=== PATIENT | female | born 1940 | race Two or more races ===

== ENCOUNTER → 2017-06-28 | Emergency (ER) | payer OTHER ==
[~2017-06-28] VITALS: Ht 149.9 cm; Wt 53.5 kg
[~2017-06-28] MED LIST: ADVAIR 5001 DISK W/1; CLARITIN-D 12 HOUR TAB ER PO; DIOVAN320 MG; FLONASE16 G1 NS; GUAIFENESI100 MG/52 PO; HYZAAR 100/25 T1 TAB; LEVAQUIN750 MG PO; LIPITOR20 MG; NABUMETONE750 MG PO; NEURONTIN300 MG; NIFE60TA3; PREDNISOLONE5 MG; PREDNISONE10 MG PO; PREDNISONE20 MG PO; PREVACID15 MG; TUSSI-PRES B LIQ5 ML PO; Xopenex 1.25 MG/3 ML SOLUTION IH
== END | disposition home or self-care (01) ==
LOC: ER 11:25
DX: R10.13 Epigastric pain (principal)

== ENCOUNTER 2017-09-18 12:36 | Emergency (ER) | payer OTHER ==
[~2017-09-18] VITALS: Ht 152.4 cm; Wt 52.2 kg
[2017-09-18] MEDS ORDERED: METFORMIN HCL500 MG (13:14)
[2017-09-18] MEDS ORDERED: HYDRALAZINE HCL50 MG (13:15)
[2017-09-18] MEDS ORDERED: DOXYCYCLINE HY100 MG PO (22:13)
[2017-09-18] MEDS ORDERED: ULTRACET PO (22:25)
== END 2017-09-18 22:42 | disposition home or self-care (01) ==
LOC: ER 12:36
DX: N39.0 Urinary tract infection, site not specified (principal)

== ENCOUNTER 2017-10-27 11:29 | Outpatient (CLI) | payer OTHER ==
[~2017-10-27 11:29] MED LIST changes: +DOXYCYCLINE HY100 MG PO; +HYDRALAZINE HCL50 MG; +METFORMIN HCL500 MG; +ULTRACET PO
== END 2017-10-27 12:16 | disposition home or self-care (01) ==
LOC: NUCLEAR 11:29
DX: M48.44XA Fatigue fracture of vertebra, thoracic region, initial encounter for fracture (principal); M80.00XA Age-related osteoporosis with current pathological fracture, unspecified site, initial encounter for fracture

== ENCOUNTER 2018-08-24 08:23 | Emergency (ER) | payer OTHER ==
[~2018-08-24] VITALS: Ht 154.9 cm; Wt 51.3 kg
[2018-08-24] MEDS ORDERED: LIPITOR40 MG (08:38)
== END 2018-08-24 16:10 | disposition home or self-care (01) ==
LOC: ER 08:23
DX: K57.90 Diverticulosis of intestine, part unspecified, without perforation or abscess without bleeding (principal); R10.32 Left lower quadrant pain

== ENCOUNTER 2020-04-28 07:43 | Inpatient (IN) | payer OTHER ==
[~2020-04-28] VITALS: Ht 149.9 cm; Wt 63.5 kg
[~2020-04-28 07:43] MED LIST changes: +LIPITOR40 MG
== END 2020-04-30 14:47 | disposition home or self-care (01) | DRG 256 ==
LOC: ER 07:43 → MEDJ 16:23
PROVIDERS: Surgery; ADMIT Internal Medicine; ATTEND Internal Medicine
PROC: 0Y6P0Z3 Detachment at Right 1st Toe, Low, Open Approach (ICD-10-PCS; principal; 2020-04-29 07:00)
DX: E11.52 Type 2 diabetes mellitus with diabetic peripheral angiopathy with gangrene (principal); I96 Gangrene, not elsewhere classified; M86.171 Other acute osteomyelitis, right ankle and foot; Z20.828 Contact with and (suspected) exposure to other viral communicable diseases; I10 Essential (primary) hypertension; E11.65 Type 2 diabetes mellitus with hyperglycemia; Z79.899 Other long term (current) drug therapy; J44.9 Chronic obstructive pulmonary disease, unspecified; Z95.0 Presence of cardiac pacemaker; Z79.4 Long term (current) use of insulin

== ENCOUNTER 2020-05-07 09:38 | Emergency (ER) | payer OTHER ==
[~2020-05-07] VITALS: Ht 154.9 cm; Wt 63.5 kg
== END 2020-05-07 16:11 | disposition home or self-care (01) ==
LOC: ER 09:38
DX: K29.70 Gastritis, unspecified, without bleeding (principal); Z03.818 Encounter for observation for suspected exposure to other biological agents ruled out

== ENCOUNTER 2020-09-17 22:43 | Inpatient (IN) | payer OTHER ==
[~2020-09-17] VITALS: Ht 154.9 cm; Wt 52.2 kg
[2020-09-17] MEDS ORDERED: GLUMETZA500 MG (22:48)
--- NOTE | 2020-09-17 22:51 | NUR ---
SE RECIBE PTE ALERTA Y ORIENTADA X3,REFIERE TENER DOLOR ABDOMINAL ,NAUSEAS.
--- NOTE | 2020-09-17 23:35 | NUR ---
SE ORIENTA PTE SOBRE TX MEDICO EL CUAL REFIERE ENTENDER.SE LE EXTRAEN MUESTRAS BAJO MEDIDAS ASEPTICAS,SE CANALIZA Y SE LE ADMINISTRA MEDICAMENTO SUNDAY ORDEN MEDICA.SE REALIZA EKG Y SE MUESTRA A DRA RAPP.
--- NOTE | 2020-09-18 04:10 | NUR ---
LE REALIZARON CT ORDENADO POR PACIENTE TOLERO ESTUDIO.
--- NOTE | 2020-09-18 06:27 | NUR ---
SE ORIENTA PTE SOBRE INSERCION DE NGT EL CUAL REFIERE ENTENDER.SE INSERTA EL MISMO EN JOHN RT BAJO MEDIDAS ASEPTICAS,SE CONECTA @LIS,PTE CON EGRESO DE 200ML.SE FARHAN BAJO OBSERVACION POR CAMBIOS.
[2020-09-21] MEDS ORDERED: ROSUVASTATIN CA40 MG (13:21)
[2020-09-21] MEDS ORDERED: FUROSEMIDE40 MG (13:21)
[2020-09-21] MEDS ORDERED: XARELTO2.5 MG (13:21)
[2020-09-21] MEDS ORDERED: EZETIMIBE10 MG (13:21)
[2020-09-21] MEDS ORDERED: AMLODIPINE BESYL5 MG (13:21)
[2020-09-21] MEDS ORDERED: HYDROCHLOROTHIA25 MG (13:22)
[2020-09-21] MEDS ORDERED: LOSARTAN POTAS100 MG (13:22)
[2020-09-21] MEDS ORDERED: FAMOTIDINE20 MG (13:22)
[2020-09-21] MEDS ORDERED: ST. JOSEPH ASPI81 M2 (13:22)
[2020-09-21] MEDS ORDERED: CILOSTAZOL100 MG (13:22)
[2020-09-21] MEDS ORDERED: CLOPIDOGREL BIS75 MG (13:22)
[2020-09-21] MEDS ORDERED: PANTOPRAZOLE SO40 MG (13:22)
== END 2020-09-24 15:03 | disposition home or self-care (01) | DRG 354 ==
LOC: ER 22:43 → SEC-K 09-18 07:12 → SURH 09-18 07:12
PROVIDERS: ADMIT Surgery; ATTEND Surgery
PROC: B24BZZZ Ultrasonography of Heart with Aorta (ICD-10-PCS; 2020-09-18)
PROC: 30233N1 Transfusion of Nonautologous Red Blood Cells into Peripheral Vein, Percutaneous Approach (ICD-10-PCS; 2020-09-21)
PROC: 0WQF0ZZ Repair Abdominal Wall, Open Approach (ICD-10-PCS; principal; 2020-09-22 16:45)
DX: K43.0 Incisional hernia with obstruction, without gangrene (principal); D62 Acute posthemorrhagic anemia; E27.49 Other adrenocortical insufficiency; E11.22 Type 2 diabetes mellitus with diabetic chronic kidney disease; I12.9 Hypertensive chronic kidney disease with stage 1 through stage 4 chronic kidney disease, or unspecified chronic kidney disease; N18.32 Chronic kidney disease, stage 3b; Z95.0 Presence of cardiac pacemaker; J44.9 Chronic obstructive pulmonary disease, unspecified; Z79.52 Long term (current) use of systemic steroids; D64.9 Anemia, unspecified; K66.0 Peritoneal adhesions (postprocedural) (postinfection)

== ENCOUNTER 2021-01-01 08:00 | Outpatient (CLI) | payer OTHER ==
[~2021-01-01 08:00] MED LIST changes: +AMLODIPINE BESYL5 MG; +CILOSTAZOL100 MG; +CLOPIDOGREL BIS75 MG; +EZETIMIBE10 MG; +FAMOTIDINE20 MG; +FUROSEMIDE40 MG; +GLUMETZA500 MG; +HYDROCHLOROTHIA25 MG; +LOSARTAN POTAS100 MG; +PANTOPRAZOLE SO40 MG; +ROSUVASTATIN CA40 MG; +ST. JOSEPH ASPI81 M2; +XARELTO2.5 MG
== END 2021-01-01 08:30 | disposition home or self-care (01) ==
LOC: PPH VACUNA 08:00
PROVIDERS: ATTEND Emergency Medicine Pediatric Emergency Medicine
DX: Z23 Encounter for immunization (principal)

== ENCOUNTER 2021-05-23 14:33 | Emergency (ER) | payer OTHER ==
[~2021-05-23] VITALS: Ht 152.4 cm; Wt 54.4 kg
[2021-05-23] MEDS ORDERED: ABANEU-SL TABL1 EACH SL (15:10)
[2021-05-23] MEDS ORDERED: HYDRALAZINE HC100 MG PO (15:11)
[2021-05-23] MEDS ORDERED: GLIPIZIDE ER2.5 MG PO (15:11)
[2021-05-23] MEDS ORDERED: TRAMADOL HCL50 MG PO (15:11)
[2021-05-23] MEDS ORDERED: GABAPENTIN400 MG PO (15:11)
== END 2021-05-23 18:15 | disposition home or self-care (01) ==
LOC: ER 14:33
DX: I16.0 Hypertensive urgency (principal); I10 Essential (primary) hypertension; R42 Dizziness and giddiness

== ENCOUNTER 2021-11-11 15:35 | Inpatient (IN) | payer OTHER ==
[~2021-11-11] VITALS: Ht 157.5 cm; Wt 68.0 kg
[~2021-11-11 15:35] MED LIST changes: +ABANEU-SL TABL1 EACH SL; +GABAPENTIN400 MG PO; +GLIPIZIDE ER2.5 MG PO; +HYDRALAZINE HC100 MG PO; +TRAMADOL HCL50 MG PO
--- NOTE | 2021-11-11 16:19 | NUR ---
SE RECIBE PTE ALERTA Y ORIENTADA X3. PTE REFIERE ESTAR EVACUANDO CON DANNI OSCURA Y LORETTA SALIDO CON NIVELES DE HEMOGLOBINA BAJOS. PTE ES REFERIDA A BOOGIE DE EMERGENCIAS POR DR. LIYA MELÉNDEZ. SE PEG S/ Y SE UBICA PTE EN AREA DE OBSERVACION.
--- NOTE | 2021-11-11 17:01 | NUR ---
SE ORIENTA PTE SOBRE TX MEDICO EL CUAL REFIERE ENTENDER.SE LE EXTRAEN MUESTRAS BAJO MEDIDAS ASEPTICAS,SE CANALIZA Y SE COLOCAN FLUIDOS DE MANTENIMIENTO,SE NOTIFICA PLACA PENDIENTE.
--- NOTE | 2021-11-11 17:06 | NUR ---
SE NOTIFICAN TERAPIAS RESP A MS FERRER.
--- NOTE | 2021-11-11 18:49 | NUR ---
SE PEG TUBOS PILOTOS PARA 2 UNIDADES DE PRBC FRACC NOTIFICADAS A MS DU DE [facility] A[facility]ILIO MUTUO Y CORROBORA PTE CON RECORD PREVIO.
[2021-11-17] MEDS ORDERED: INTEGRA PLUS C1 EACH PO (19:57)
[2021-11-17] MEDS ORDERED: TAMIFLU 30 MG PO (19:57)
[2021-11-17] MEDS ORDERED: CARAFATE1 GM PO (19:57)
[2021-11-17] MEDS ORDERED: PYRIDOXINE HCL100 MG PO (19:57)
[2021-11-17] MEDS ORDERED: Neurin-Sl Tablet Sl SL (19:57)
[2021-11-17] MEDS ORDERED: RAYOS1 MG PO (20:04)
[2021-11-17] MEDS ORDERED: PREDNISONE PO ×2 (20:04)
== END 2021-11-17 22:25 | disposition home or self-care (01) | DRG 377 ==
LOC: ER 15:35 → MEDJ 22:50
PROVIDERS: ADMIT Internal Medicine; ATTEND Internal Medicine
PROC: B54NZZZ Ultrasonography of Left Upper Extremity Veins (ICD-10-PCS; 2021-11-11)
PROC: BW24ZZZ Computerized Tomography (CT Scan) of Chest and Abdomen (ICD-10-PCS; 2021-11-11)
PROC: BW21ZZZ Computerized Tomography (CT Scan) of Abdomen and Pelvis (ICD-10-PCS; 2021-11-11)
PROC: 30233N1 Transfusion of Nonautologous Red Blood Cells into Peripheral Vein, Percutaneous Approach (ICD-10-PCS; principal; 2021-11-12)
PROC: 02HV33Z Insertion of Infusion Device into Superior Vena Cava, Percutaneous Approach (ICD-10-PCS; 2021-11-12)
PROC: 8E0ZXY6 Isolation (ICD-10-PCS; 2021-11-12)
PROC: B54MZZZ Ultrasonography of Right Upper Extremity Veins (ICD-10-PCS; 2021-11-16)
DX: K92.1 Melena (principal); U07.1 COVID-19; J44.1 Chronic obstructive pulmonary disease with (acute) exacerbation; J45.901 Unspecified asthma with (acute) exacerbation; R09.02 Hypoxemia; E87.6 Hypokalemia; J10.1 Influenza due to other identified influenza virus with other respiratory manifestations; D63.8 Anemia in other chronic diseases classified elsewhere; Z79.4 Long term (current) use of insulin; I12.9 Hypertensive chronic kidney disease with stage 1 through stage 4 chronic kidney disease, or unspecified chronic kidney disease; E11.22 Type 2 diabetes mellitus with diabetic chronic kidney disease; N18.30 Chronic kidney disease, stage 3 unspecified; Z95.0 Presence of cardiac pacemaker; Z86.718 Personal history of other venous thrombosis and embolism

== ENCOUNTER 2021-11-19 09:55 | Emergency (ER) | payer OTHER ==
[~2021-11-19] VITALS: Ht 157.5 cm; Wt 54.0 kg
[~2021-11-19 09:55] MED LIST changes: +CARAFATE1 GM PO; +INTEGRA PLUS C1 EACH PO; +Neurin-Sl Tablet Sl SL; +PREDNISONE PO; +PYRIDOXINE HCL100 MG PO; +RAYOS1 MG PO; +TAMIFLU 30 MG PO
[2021-11-19] MEDS ORDERED: CEFADROXIL500 MG PO (10:16)
[2021-11-19] MEDS ORDERED: COZAAR25 MG PO (10:16)
[2021-11-19] MEDS ORDERED: DOXYCYCLINE HY100 M2 PO (15:51)
[2021-11-19] MEDS ORDERED: INTESTINEX680 M2 PO (15:51)
== END 2021-11-19 17:08 | disposition home or self-care (01) ==
LOC: ER 09:55
DX: L03.113 Cellulitis of right upper limb (principal); Z20.822 Contact with and (suspected) exposure to COVID-19; Z88.6 Allergy status to analgesic agent

== ENCOUNTER 2021-11-22 17:25 | Inpatient (IN) | payer OTHER ==
[~2021-11-22] VITALS: Ht 154.9 cm; Wt 54.0 kg
[~2021-11-22 17:25] MED LIST changes: +CEFADROXIL500 MG PO; +COZAAR25 MG PO; +DOXYCYCLINE HY100 M2 PO; +INTESTINEX680 M2 PO
--- NOTE | 2021-11-22 17:41 | NUR ---
SE RECIBE A PACIENTE ALERTA Y ORIENTADA X3 ACOMPANADA DE PROCTOR HIJA. REFIERE TENER DOLOR EN BRAZO DERECHO. REFIERE SER PACIENTE DE DOCTOR
--- NOTE | 2021-11-22 18:58 | NUR ---
PTE EVALUADA POR EL DR WOODY QUIEN ORDENA EL TX. SE ORIENTA SOBRE EL TX ORDENADO, LO REFIERE ENTENDER, PTE Y FAMILIAR. SE REALIZAN PRUEBAS DE LABORATORIO SUNDAY ORDEN MEDICA Y SIGUIENDO MEDIDAS ASEPTICAS Y ESTERILES. SE OFRECE CUIDADO LOCAL CON HIBICLEANS SUNDAY ORDEN MEDICA DEL DR ANDERSON EN BRAZO RT EL MISMO PRESENTA PUSTULAS Y ULCERA EN AREA DEL ANTEBRAZO. SE COLOCA BENDAJE LIMPIO Y SECO. PTE CANALIZADA EN BRAZO LT, EN AREA SOLICITADA POR FAMILIAR, PATENTE Y MICHAEL DE EDEMA O ERITEMA.
[2021-11-23] MEDS ORDERED: LOSARTAN POTAS100 MG (11:05)
[2021-11-23] MEDS ORDERED: XARELTO2.5 MG (11:05)
[2021-11-23] MEDS ORDERED: CLONIDINE HCL0.1 MG (11:05)
[2021-11-23] MEDS ORDERED: ROSUVASTATIN CA40 MG (11:05)
[2021-11-23] MEDS ORDERED: OSELTAMIVIR PHO30 MG PO (11:08)
[2021-12-08] MEDS ORDERED: RAYOS5 MG PO (10:41)
[2021-12-08] MEDS ORDERED: INTESTINEX680 M1 PO (10:41)
[2021-12-08] MEDS ORDERED: PROTEINEX-18 LI30 ML PO (10:41)
[2021-12-08] MEDS ORDERED: PYRIDOXINE HCL100 MG PO (10:41)
[2021-12-08] MEDS ORDERED: POM (MEDICAMENTO EN IH (10:41)
[2021-12-08] MEDS ORDERED: Neurin-Sl Tablet Sl SL (10:41)
[2021-12-08] MEDS ORDERED: Septra Ds Tablet PO (10:41)
== END 2021-12-09 11:11 | disposition home or self-care (01) | DRG 603 ==
LOC: ER 17:25 → SURG 18:50 → SEC-K 18:50 → SURH 18:50 → SURG 11-23 07:46 → MEDJ 11-23 19:48 → SURG 11-24 10:49 → SURH 11-24 14:15
PROVIDERS: ADMIT Internal Medicine; ATTEND Internal Medicine
PROC: 0HBDXZX Excision of Right Lower Arm Skin, External Approach, Diagnostic (ICD-10-PCS; principal; 2021-11-22)
PROC: 8E0ZXY6 Isolation (ICD-10-PCS; 2021-11-22)
PROC: 30233N1 Transfusion of Nonautologous Red Blood Cells into Peripheral Vein, Percutaneous Approach (ICD-10-PCS; 2021-12-05)
DX: L03.113 Cellulitis of right upper limb (principal); A00-B99 Certain infectious and parasitic diseases; J44.1 Chronic obstructive pulmonary disease with (acute) exacerbation; J45.21 Mild intermittent asthma with (acute) exacerbation; B37.49 Other urogenital candidiasis; L02.413 Cutaneous abscess of right upper limb; I87.9 Disorder of vein, unspecified; I13.10 Hypertensive heart and chronic kidney disease without heart failure, with stage 1 through stage 4 chronic kidney disease, or unspecified chronic kidney disease; N18.30 Chronic kidney disease, stage 3 unspecified; I25.10 Atherosclerotic heart disease of native coronary artery without angina pectoris; E11.9 Type 2 diabetes mellitus without complications; D63.8 Anemia in other chronic diseases classified elsewhere; Z79.52 Long term (current) use of systemic steroids; Z79.01 Long term (current) use of anticoagulants; Z95.5 Presence of coronary angioplasty implant and graft; Z95.0 Presence of cardiac pacemaker; Z79.84 Long term (current) use of oral hypoglycemic drugs

== ENCOUNTER 2022-03-19 14:17 | Inpatient (IN) | payer OTHER ==
[~2022-03-19] VITALS: Ht 154.9 cm; Wt 54.4 kg
[~2022-03-19 14:17] MED LIST changes: +CLONIDINE HCL0.1 MG; +INTESTINEX680 M1 PO; +OSELTAMIVIR PHO30 MG PO; +POM (MEDICAMENTO EN IH; +PROTEINEX-18 LI30 ML PO; +RAYOS5 MG PO; +Septra Ds Tablet PO
== END 2022-03-23 23:29 | disposition home or self-care (01) | DRG 392 ==
LOC: ER 14:17 → MEDJ 22:52
PROVIDERS: ADMIT Internal Medicine; ATTEND Internal Medicine
PROC: BW21ZZZ Computerized Tomography (CT Scan) of Abdomen and Pelvis (ICD-10-PCS; principal; 2022-03-19)
DX: K57.32 Diverticulitis of large intestine without perforation or abscess without bleeding (principal); I13.0 Hypertensive heart and chronic kidney disease with heart failure and stage 1 through stage 4 chronic kidney disease, or unspecified chronic kidney disease; N18.9 Chronic kidney disease, unspecified; E11.22 Type 2 diabetes mellitus with diabetic chronic kidney disease; I25.10 Atherosclerotic heart disease of native coronary artery without angina pectoris; I50.9 Heart failure, unspecified; D64.9 Anemia, unspecified

== ENCOUNTER 2022-03-30 15:16 | Inpatient (IN) | payer OTHER ==
[~2022-03-30] VITALS: Ht 154.9 cm; Wt 49.9 kg
[2022-04-05] MEDS ORDERED: ABANEU-SL TABL1 EACH (11:46)
[2022-04-05] MEDS ORDERED: SYMBICORT 16010.2 GM (11:48)
== END 2022-04-07 20:39 | disposition home or self-care (01) | DRG 392 ==
LOC: ER 15:16 → MEDI 22:42
PROVIDERS: ADMIT Internal Medicine; ATTEND Internal Medicine
PROC: BW21ZZZ Computerized Tomography (CT Scan) of Abdomen and Pelvis (ICD-10-PCS; 2022-03-30)
PROC: BW28ZZZ Computerized Tomography (CT Scan) of Head (ICD-10-PCS; 2022-03-31)
PROC: 8E0ZXY6 Isolation (ICD-10-PCS; 2022-04-01)
PROC: 02HV33Z Insertion of Infusion Device into Superior Vena Cava, Percutaneous Approach (ICD-10-PCS; principal; 2022-04-02)
DX: K57.32 Diverticulitis of large intestine without perforation or abscess without bleeding (principal); A04.72 Enterocolitis due to Clostridium difficile, not specified as recurrent; N17.9 Acute kidney failure, unspecified; D64.9 Anemia, unspecified; I13.10 Hypertensive heart and chronic kidney disease without heart failure, with stage 1 through stage 4 chronic kidney disease, or unspecified chronic kidney disease; N18.9 Chronic kidney disease, unspecified; D63.1 Anemia in chronic kidney disease; E03.8 Other specified hypothyroidism

== ENCOUNTER 2022-04-22 11:41 | Inpatient (IN) | payer OTHER ==
[~2022-04-22] VITALS: Ht 157.5 cm; Wt 52.2 kg
[~2022-04-22 11:41] MED LIST changes: +ABANEU-SL TABL1 EACH; +SYMBICORT 16010.2 GM
--- NOTE | 2022-04-22 11:57 | NUR ---
PTE ALERTA,ESTABLE Y ORIENTADA.ESTA REFIERE QUE DESDE HACE 3 HANNA COMENZO CON EL DOLOR DE ABD
--- NOTE | 2022-04-22 12:55 | NUR ---
SE LE ORIENTA A PACIENTE SOBRE LAS ORDENES MEDICAS, REFIERE ENTEDER LAS MISMAS. SE CANALIZA Y SE LE COLOCA LOS IVF'S, SE LE PEG LAS MUETRAS Y SE LE REALIZA PLACA SUNDAY LAS ORDENES MEDICAS.
--- NOTE | 2022-04-22 15:17 | NUR ---
PTE ALERTA Y ORIENTA X 3 ESFERAS,EN AAMIR CON BARANDAS ELEVADAS,EN COMPANIA DE FAMILIARM,AREA DE VENOPUNCION PATENTE Y MICHAEL DE EDEMA CON FLUIDOS DE MANTENIMIENTO,INGIRIENDO ALIMENTOS LOS CUALES TOLERA,SE ORIENTA SOBRE CT PENDIENTE.
--- NOTE | 2022-04-22 23:55 | NUR ---
SE RECIBE PTE ALERTA Y ORIENTADA X3 EN AAMIR CON BARANDAS ELEVADAS. PTE CANALIZADA AREA MICHAEL DE EDEMA Y DE ENROJECIMIENTO. PTE EN ESPERA DE RE EVALUACION MEDICA.
--- NOTE | 2022-04-23 03:02 | NUR ---
PACIENTE Y FAMILIAR REHUSAN FIRMAR PAPELES DE ADMISION HASTA QUE EL DR. PERALTAARY VENGA A CHERRY A LA PACIENTE. LA MISMA REFIERE QUE NO ESTAN REHUSANDO EL TRATAMIENTO. SE NOTIFICA A REGLA DE SUPERVISION GENERAL Y LA MISMA INDICA QUE LA ADMISION SE QUEDA INCOMPLETA Y LA PACIENTE SE QUEDA EN BOOGIE DE EMERGENCIA.
--- NOTE | 2022-04-23 08:33 | NUR ---
SE RECIBE PTE FEMENINA DE 81 YRS ALERTA CONCINTE . SE LE MABLE S/V LA CUAL SE DOCUMENTA. SE LE ADMINSTRA MEDICMANTOS DE VASOTEC1.25 MG IV POR PRECIONES LINDSAY. SE LE LLAMA A LA Y SE LE VLADIMIR MENSAJE PARA QUE VENGA A EVALUADA LA PTE YA QUE NO SE QUIERE ADMITIR A EL HOSPITAL SE MANTIENE BAJO OBSERVACION.
== END 2022-04-26 17:25 | disposition home or self-care (01) | DRG 392 ==
LOC: ER 11:41 → MEDI 04-23 10:50
PROVIDERS: ADMIT Internal Medicine; ATTEND Internal Medicine
PROC: BW2110Z Computerized Tomography (CT Scan) of Abdomen and Pelvis using Low Osmolar Contrast, Unenhanced and Enhanced (ICD-10-PCS; principal; 2022-04-22)
DX: K57.32 Diverticulitis of large intestine without perforation or abscess without bleeding (principal); A04.72 Enterocolitis due to Clostridium difficile, not specified as recurrent; E03.9 Hypothyroidism, unspecified; E11.22 Type 2 diabetes mellitus with diabetic chronic kidney disease; I12.9 Hypertensive chronic kidney disease with stage 1 through stage 4 chronic kidney disease, or unspecified chronic kidney disease; N18.30 Chronic kidney disease, stage 3 unspecified; D64.9 Anemia, unspecified; M06.9 Rheumatoid arthritis, unspecified; Z79.84 Long term (current) use of oral hypoglycemic drugs

== ENCOUNTER 2022-05-08 20:32 | Inpatient (IN) | payer OTHER ==
[~2022-05-08] VITALS: Ht 157.5 cm; Wt 52.2 kg
--- NOTE | 2022-05-08 21:29 | NUR ---
PTE SE OBSERVA LETARGICO. FAMILIAR DE PTE VERBALIZA QUE PTE PADECE DE DIVERTICULITIS. PTE VERBALIZA TENER DOLOR ABDOMINAL EN LA PARTE INFERIOR. PTE SE LE REALIZA EKG Y ES EVALUADO POR DR CARRENO.
--- NOTE | 2022-05-08 22:09 | NUR ---
IV LINE IS STARTED ON PATIENT'S WRIST AND LAB SAMPLES ARE COLLECTED. SALINE LOCK IS PLACED IN IV LINE AND IV FLUIDS ARE GIVEN.
--- NOTE | 2022-05-09 07:45 | NUR ---
SE RECIBE PTE EN EL AREA DE OBSERVACION PTE ALERTA Y ORIENTADO POR 3 PTE EN CAMA CON BARANDAS ELEVADA Y TIMBRE ACCESIBLE PTE NO PRESENTA DOLOR AL MOMENTO. SE OBSERVA VENOPUNCION PATENTE Y MICHAEL DE EDEMA, PTE SE MANTIENE EN OBSERVACION Y BAJO TRATAMIENTO POR CAMBIOS.
== END 2022-05-14 16:03 | disposition home or self-care (01) | DRG 392 ==
LOC: ER 20:32 → SEC-K 05-09 14:50 → SURG 05-09 19:02 → SURH 05-10 02:48
PROVIDERS: ADMIT Internal Medicine; ATTEND Internal Medicine
PROC: BW2110Z Computerized Tomography (CT Scan) of Abdomen and Pelvis using Low Osmolar Contrast, Unenhanced and Enhanced (ICD-10-PCS; principal; 2022-05-08)
DX: K57.32 Diverticulitis of large intestine without perforation or abscess without bleeding (principal); A04.72 Enterocolitis due to Clostridium difficile, not specified as recurrent; I11.9 Hypertensive heart disease without heart failure; E03.9 Hypothyroidism, unspecified; Z91.119 Patient's noncompliance with dietary regimen due to unspecified reason; Z91.199 Patient's noncompliance with other medical treatment and regimen due to unspecified reason

== ENCOUNTER 2022-10-23 20:52 | Emergency (ER) | payer OTHER ==
[~2022-10-23] VITALS: Ht 154.9 cm; Wt 52.2 kg
== END 2022-10-23 23:52 | disposition home or self-care (01) ==
LOC: ER 20:52
DX: I10 Essential (primary) hypertension (principal); Z88.6 Allergy status to analgesic agent; E11.9 Type 2 diabetes mellitus without complications; Z79.84 Long term (current) use of oral hypoglycemic drugs

== ENCOUNTER 2023-05-15 16:47 | Emergency (ER) | payer OTHER ==
[~2023-05-15] VITALS: Ht 154.9 cm; Wt 49.9 kg
[2023-05-15 18:13] LABS: HEMATOCRIT 30.8 % (36.0-45.00); HEMOGLOBIN 9.8 g/dL (12.0-15.00); MEAN CELL VOLUME 80.6 fL (80.00-100.00); MEAN CORPUSCULAR HEMOGLOBIN 25.6 pg (27.00-32.0); MEAN CORPUSCULAR HGB CONC 31.8 g/dl (32.0-36.0); PLATELET COUNT 221 K/uL (150-450); RED BLOOD COUNT 3.82 M/uL (4.00-6.00); RED CELL DISTRIBUTION WIDTH 17.9 % (11.5-14.5)
[2023-05-15 18:38] LABS: ALBUMIN 2.5 gm/dL (3.4-5.0); BILIRUBIN TOTAL 0.36 mg/dL (0.3-1.2); CALCIUM 8.4 mg/dL (8.5-10.1); CREATININE SERUM 1.15 mg/dL (0.55-1.02); GFR 45.29; GLOBULINA 3.8 G/DL (2.4-3.5); POTASSIUM 4.03 mEq/L (3.5-5.1); TOTAL PROTEIN 6.3 gm/dL (6.4-8.2)
[2023-05-15 19:06] LABS: URINE APPEARANCE Clear; URINE BILIRRUBIN Negative (NEGATIVE); URINE BLOOD Negative; URINE COLOR Yellow; URINE GLUCOSE Negative (NEGATIVE); URINE LEUKOCYTE Small; URINE NITRATE Negative; URINE PROTEIN Trace (NEGATIVE); URINE UROBILINOGEN 0.2 E.U./dl
[2023-05-15 19:10] LABS: URINE BACTERIA 197.7 uL (0.0-1933); URINE EPITHELIAL CELLS 62.7 uL (0.0-38.8); URINE WBC 85.7 uL (0.0-23.2)
== END 2023-05-16 01:31 | disposition home or self-care (01) ==
LOC: ER 16:49
PROVIDERS: General Practice
DX: K57.32 Diverticulitis of large intestine without perforation or abscess without bleeding (principal); K57.30 Diverticulosis of large intestine without perforation or abscess without bleeding; E11.9 Type 2 diabetes mellitus without complications; Z79.84 Long term (current) use of oral hypoglycemic drugs; I10 Essential (primary) hypertension

== ENCOUNTER 2023-05-17 03:18 | Inpatient (IN) | payer OTHER ==
[~2023-05-17] VITALS: Ht 154.9 cm; Wt 49.9 kg
[2023-05-17 04:42] LABS: HEMATOCRIT 31.8 % (36.0-45.00); HEMOGLOBIN 10.4 g/dL (12.0-15.00); MEAN CELL VOLUME 78.4 fL (80.00-100.00); MEAN CORPUSCULAR HEMOGLOBIN 25.6 pg (27.00-32.0); MEAN CORPUSCULAR HGB CONC 32.6 g/dl (32.0-36.0); PLATELET COUNT 213 K/uL (150-450); RED BLOOD COUNT 4.06 M/uL (4.00-6.00); RED CELL DISTRIBUTION WIDTH 18.1 % (11.5-14.5)
[2023-05-17 04:54] LABS: INR 1.09; PARTIAL THROMBOPLASTIN TIME 29.9 SECONDS (22.0-34.0); PROTHROMBIN TIME 11.4 SECONDS (9.0-11.5)
[2023-05-17 05:09] LABS: ALBUMIN 2.5 gm/dL (3.4-5.0); BILIRUBIN TOTAL 0.44 mg/dL (0.3-1.2); BILIRUBIN,CONJUGATED 0.12 mg/dL (0.0-0.2); BILIRUBIN,UNCONJUGATED 0.32 mg/dL (0.0-0.6); CALCIUM 8.5 mg/dL (8.5-10.1); CREATININE SERUM 1.2 mg/dL (0.55-1.02); GFR 43.12; GLOBULINA 3.8 G/DL (2.4-3.5); POTASSIUM 4.27 mEq/L (3.5-5.1); TOTAL PROTEIN 6.3 gm/dL (6.4-8.2)
[2023-05-17 12:34] LABS: URINE APPEARANCE Turbid; URINE BILIRRUBIN Negative (NEGATIVE); URINE BLOOD Negative; URINE COLOR Yellow; URINE GLUCOSE Negative (NEGATIVE); URINE LEUKOCYTE Large; URINE NITRATE Negative; URINE PROTEIN Trace (NEGATIVE)
[2023-05-17 12:42] LABS: URINE BACTERIA 4214.4 uL (0.0-1933); URINE RBC 35.2 uL (0.0-20.8); URINE WBC 501.6 uL (0.0-23.2)
[2023-05-17 13:22] LABS: URINE EPITHELIAL CELLS > 201.7 uL (0.0-38.8)
== END 2023-05-20 10:36 | disposition home or self-care (01) | DRG 392 ==
LOC: ER 03:18 → MEDI 20:35
PROVIDERS: General Practice; ADMIT Internal Medicine; ATTEND Internal Medicine
DX: K52.89 Other specified noninfective gastroenteritis and colitis (principal); N39.0 Urinary tract infection, site not specified; I10 Essential (primary) hypertension; Z20.822 Contact with and (suspected) exposure to COVID-19; E03.9 Hypothyroidism, unspecified

== ENCOUNTER 2023-05-28 12:53 | Inpatient (IN) | payer OTHER ==
[~2023-05-28] VITALS: Ht 160 cm; Wt 6.8 kg
[2023-05-28] MEDS ORDERED: SYNTHROID50 MCG PO (13:11)
[2023-05-28] MEDS ORDERED: 0.9 % SODIUM CHLORIDE 1,000 ML IV STA (14:15)
[2023-05-28 15:17] LABS: PH,URINE 5.5 (5.0-8.0); URINE APPEARANCE Cloudy; URINE BILIRRUBIN Negative (NEGATIVE); URINE BLOOD Negative; URINE COLOR Yellow; URINE GLUCOSE Negative (NEGATIVE); URINE LEUKOCYTE Trace; URINE NITRATE Negative; URINE PROTEIN Negative (NEGATIVE); URINE UROBILINOGEN 0.2 E.U./dl
[2023-05-28 15:18] LABS: ALBUMIN 2.8 gm/dL (3.4-5.0); BILIRUBIN TOTAL 0.4 mg/dL (0.3-1.2); BILIRUBIN,CONJUGATED 0.1 mg/dL (0.0-0.2); BILIRUBIN,UNCONJUGATED 0.3 mg/dL (0.0-0.6); CALCIUM 8.9 mg/dL (8.5-10.1); CREATININE SERUM 1.71 mg/dL (0.55-1.02); GFR 28.65; HEMATOCRIT 33.4 % (36.0-45.00); HEMOGLOBIN 10.5 g/dL (12.0-15.00); MEAN CELL VOLUME 79.3 fL (80.00-100.00); MEAN CORPUSCULAR HEMOGLOBIN 24.9 pg (27.00-32.0); MEAN CORPUSCULAR HGB CONC 31.4 g/dl (32.0-36.0); PLATELET COUNT 288 K/uL (150-450); POTASSIUM 3.23 mEq/L (3.5-5.1); RED BLOOD COUNT 4.21 M/uL (4.00-6.00); RED CELL DISTRIBUTION WIDTH 19.4 % (11.5-14.5); TOTAL PROTEIN 6.4 gm/dL (6.4-8.2)
[2023-05-28 15:18] LABS: URINE BACTERIA 147.4 uL (0.0-1933); URINE RBC 8.9 uL (0.0-20.8); URINE WBC 38.3 uL (0.0-23.2)
[2023-05-28 15:34] LABS: URINE EPITHELIAL CELLS > 201.7 uL (0.0-38.8)
[2023-05-28] MEDS ORDERED: PIPERACILLIN/TAZOBACTAM SODIUM 2.25 GM VIAL IV ONE (16:15)
[2023-05-28] MEDS ORDERED: METRONIDAZOLE/SODIUM CHLORIDE 5 MG/ML ML IV SCH (21:11)
[2023-05-28] MEDS ORDERED: PIPERACILLIN/TAZOBACTAM SODIUM 2.25 GM VIAL IV SCH (21:11)
[2023-05-28] MEDS ORDERED: FAMOTIDINE/PF 20 MG/2 ML VIAL IV SCH (21:11)
[2023-05-28] MEDS ORDERED: RIVAROXABAN 10 MG TAB PO SCH (21:14)
[2023-05-28] MEDS ORDERED: MEPERIDINE HCL/PF 25 MG/ML VIAL IM PRN (21:15)
[2023-05-28] MEDS ORDERED: ONDANSETRON HCL 4 MG in 0.9 % SODIUM CHLORIDE 50 ML IV PRN (21:15)
[2023-05-28] MEDS ORDERED: hydrALAZINE HCL 20 MG VIAL IV PRN (21:15)
[2023-05-28 22:47] LABS: AMYLASE 62 U/L (25-115); LIPASE 24 U/L (13-75)
[2023-05-29] MEDS ORDERED: POTASSIUM CHLORIDE IN WATER 100 ML IV ONE (10:45)
[2023-05-29] MEDS ORDERED: METRONIDAZOLE/SODIUM CHLORIDE 500 MG/100 ML PIGGYBACK IV SCH (13:51)
[2023-05-29] MEDS ORDERED: PATIENTS OWN MEDICATION (MEDICAMENTO EN PISO) PO SCH (17:00)
[2023-05-30 05:09] LABS: HEMATOCRIT 28.4 % (36.0-45.00); MEAN CELL VOLUME 79.8 fL (80.00-100.00); MEAN CORPUSCULAR HGB CONC 31.6 g/dl (32.0-36.0); PLATELET COUNT 252 K/uL (150-450); RED BLOOD COUNT 3.55 M/uL (4.00-6.00); RED CELL DISTRIBUTION WIDTH 19.1 % (11.5-14.5)
[2023-05-30 05:15] LABS: MEAN CORPUSCULAR HEMOGLOBIN 25.3 pg (27.00-32.0)
[2023-05-30 05:27] LABS: CALCIUM 8.2 mg/dL (8.5-10.1); CREATININE SERUM 1.19 mg/dL (0.55-1.02); GFR 43.53; POTASSIUM 4.35 mEq/L (3.5-5.1)
[2023-05-30] MEDS ORDERED: PATIENTS OWN MEDICATION (MEDICAMENTO EN PISO) PO SCH ×2 (09:00)
[2023-05-30] MEDS ORDERED: Cyanocobalamin/Mecobalamin 1 TAB.SL SL SCH (10:03)
[2023-05-30] MEDS ORDERED: SOD FERRIC GLUC COMPLX/SUCROSE 62.5 MG/5 ML AMPUL IV SCH (10:03)
[2023-05-30] MEDS ORDERED: FLUCONAZOLE IN NACL,ISO-OSM 50 ML IV SCH (12:20)
[2023-05-30 13:22] LABS: FERRITIN 161.6 NG/ML (8-252)
[2023-05-30] MEDS ORDERED: FLUCONAZOLE IN NACL,ISO-OSM 2 MG/ML ML IV SCH (17:00)
[2023-05-30] MEDS ORDERED: EPOETIN ALFA-EPBX 10,000 UNIT/ML 2ML VIAL SUBCUTANEO SCH (17:00)
[2023-05-31] MEDS ORDERED: LEVOTHYROXINE SODIUM 50 MCG TABLET PO SCH (06:00)
[2023-05-31] MEDS ORDERED: CARVEDILOL 6.25 MG TABLET PO SCH (10:05)
[2023-05-31] MEDS ORDERED: LOSARTAN POTASSIUM 100 MG TABLET PO SCH (10:05)
[2023-05-31] MEDS ORDERED: ENOXAPARIN SODIUM 60 MG/0.6 ML SYRINGE SUBCUTANEO SCH (12:00)
[2023-05-31 16:30] LABS: CALCIUM 8.4 mg/dL (8.5-10.1); CHOL HDL RATIO 3.5 (0-5.0); CREATININE SERUM 1.03 mg/dL (0.55-1.02); GFR 51.43; POTASSIUM 3.99 mEq/L (3.5-5.1)
[2023-05-31] MEDS ORDERED: AA 4.25%/CAL/LYTES/DEXT 5% 1,000 ML PERIFERAL SCH (17:00)
[2023-05-31] MEDS ORDERED: NIFEDIPINE 60 MG TAB.SA.OSM PO SCH (21:00)
[2023-06-01] MEDS ORDERED: BUDESONIDE 0.5 MG/2 ML AMPUL.NEB IH SCH (11:41)
[2023-06-01] MEDS ORDERED: IPRATROPIUM BROMIDE 0.5 MG/2.5 ML AMPUL.NEB IH SCH (13:00)
[2023-06-02 06:53] LABS: HEMATOCRIT 27.5 % (36.0-45.00); MEAN CELL VOLUME 78.8 fL (80.00-100.00); MEAN CORPUSCULAR HEMOGLOBIN 25.9 pg (27.00-32.0); MEAN CORPUSCULAR HGB CONC 32.9 g/dl (32.0-36.0); PLATELET COUNT 242 K/uL (150-450); RED BLOOD COUNT 3.49 M/uL (4.00-6.00); RED CELL DISTRIBUTION WIDTH 18.2 % (11.5-14.5)
[2023-06-02 06:57] LABS: CALCIUM 8.3 mg/dL (8.5-10.1); CREATININE SERUM 0.9 mg/dL (0.55-1.02); GFR 60.09; POTASSIUM 3.75 mEq/L (3.5-5.1)
[2023-06-02] MEDS ORDERED: IOHEXOL 350 mgI/ML 50ML BOTT PO ONE (09:15)
[2023-06-04] MEDS ORDERED: DEXTROSE 5 % IN WATER 1,000 ML IV SCH (10:30)
[2023-06-05] MEDS ORDERED: IPRATROPIUM BROMIDE 0.5 MG/2.5 ML AMPUL.NEB IH SCH (10:49)
[2023-06-06 07:06] LABS: UREA CLEARANCE 9.5 ML/MIN
[2023-06-06 11:51] LABS: HEMATOCRIT 37.2 % (36.0-45.00); HEMOGLOBIN 12.1 g/dL (12.0-15.00); MEAN CELL VOLUME 82.2 fL (80.00-100.00); MEAN CORPUSCULAR HEMOGLOBIN 26.7 pg (27.00-32.0); MEAN CORPUSCULAR HGB CONC 32.5 g/dl (32.0-36.0); PLATELET COUNT 303 K/uL (150-450); RED BLOOD COUNT 4.53 M/uL (4.00-6.00); RED CELL DISTRIBUTION WIDTH 20.6 % (11.5-14.5)
[2023-06-06 12:43] LABS: ALBUMIN 2.8 gm/dL (3.4-5.0); BILIRUBIN TOTAL 0.26 mg/dL (0.3-1.2); CALCIUM 8.7 mg/dL (8.5-10.1); CREATININE SERUM 1.13 mg/dL (0.55-1.02); GFR 46.21; GLOBULINA 3.2 G/DL (2.4-3.5); POTASSIUM 3.61 mEq/L (3.5-5.1)
== END 2023-06-06 14:09 | DRG 392 ==
LOC: ER 12:53 → MEDI 21:11
PROVIDERS: General Practice; Internal Medicine Hematology & Oncology; ADMIT Internal Medicine; ATTEND Internal Medicine
PROC: BW21ZZZ Computerized Tomography (CT Scan) of Abdomen and Pelvis (ICD-10-PCS; principal; 2023-05-28)
PROC: 02HV33Z Insertion of Infusion Device into Superior Vena Cava, Percutaneous Approach (ICD-10-PCS; 2023-06-01)
PROC: 3E0F7GC Introduction of Other Therapeutic Substance into Respiratory Tract, Via Natural or Artificial Opening (ICD-10-PCS; 2023-06-01)
PROC: BW21ZZZ Computerized Tomography (CT Scan) of Abdomen and Pelvis (ICD-10-PCS; 2023-06-02)
DX: K57.92 Diverticulitis of intestine, part unspecified, without perforation or abscess without bleeding (principal); N17.9 Acute kidney failure, unspecified; K52.9 Noninfective gastroenteritis and colitis, unspecified; I10 Essential (primary) hypertension; D50.9 Iron deficiency anemia, unspecified; E11.9 Type 2 diabetes mellitus without complications; E03.8 Other specified hypothyroidism

== ENCOUNTER 2023-11-07 14:21 | Inpatient (IN) | payer OTHER ==
[~2023-11-07] VITALS: Ht 154.9 cm; Wt 49.0 kg
[~2023-11-07 14:21] MED LIST changes: +SYNTHROID50 MCG PO
[2023-11-07] MEDS ORDERED: CARVEDILOL6.25 MG (15:43)
[2023-11-07] MEDS ORDERED: NEURONTIN300 MG PO (15:43)
[2023-11-07] MEDS ORDERED: NIFEDIPINE20 MG (15:43)
[2023-11-07] MEDS ORDERED: METROnidazole 500 MG TABLET PO SCH (17:28)
[2023-11-07 17:51] LABS: HEMOGLOBIN 12.2 g/dL (12.0-15.00); MEAN CORPUSCULAR HGB CONC 32.1 g/dl (32.0-36.0); PLATELET COUNT 228 K/uL (150-450); RED BLOOD COUNT 4.52 M/uL (4.00-6.00); RED CELL DISTRIBUTION WIDTH 17.9 % (11.5-14.5)
[2023-11-07 18:09] LABS: PARTIAL THROMBOPLASTIN TIME 25.5 SECONDS (22.0-34.0); PROTHROMBIN TIME 10.5 SECONDS (9.0-11.5)
[2023-11-07 18:13] LABS: ALBUMIN 3.6 gm/dL (3.4-5.0); BILIRUBIN TOTAL 0.35 mg/dL (0.3-1.2); CALCIUM 9.9 mg/dL (8.5-10.1); CREATININE SERUM 1.14 mg/dL (0.55-1.02); GFR 45.63; GLOBULINA 4.3 G/DL (2.4-3.5); POTASSIUM 4.91 mEq/L (3.5-5.1); TOTAL PROTEIN 7.9 gm/dL (6.4-8.2)
[2023-11-07 18:23] LABS: PH,URINE 5.5 (5.0-8.0); URINE APPEARANCE Clear; URINE BILIRRUBIN Negative (NEGATIVE); URINE BLOOD Negative; URINE COLOR Yellow; URINE GLUCOSE Negative (NEGATIVE); URINE LEUKOCYTE Trace; URINE NITRATE Negative; URINE PROTEIN 30 (NEGATIVE); URINE UROBILINOGEN 0.2 E.U./dl
[2023-11-07 18:27] LABS: URINE BACTERIA 42.8 uL (0.0-1933); URINE EPITHELIAL CELLS 19.3 uL (0.0-38.8); URINE WBC 12.8 uL (0.0-23.2)
[2023-11-07] MEDS ORDERED: SODIUM CHLORIDE 0.45 % 1,000 ML IV SCH (21:30)
[2023-11-07] MEDS ORDERED: CIPROFLOXACIN IN 5 % DEXTROSE 200 ML IV SCH (21:43)
[2023-11-07] MEDS ORDERED: DEXTROSE 50 % IN WATER 0.5 G/ML DISP.SYRIN IV PRN (21:45)
[2023-11-07] MEDS ORDERED: INSULIN LISPRO 1,000 UNIT/10 ML UNITS SUBCUTANEO PRN (21:45)
[2023-11-08 00:49] LABS: INR 1.07; PARTIAL THROMBOPLASTIN TIME 27.8 SECONDS (22.0-34.0); PROTHROMBIN TIME 11.2 SECONDS (9.0-11.5)
[2023-11-08] MEDS ORDERED: METRONIDAZOLE/SODIUM CHLORIDE 100 ML IV SCH (01:00)
[2023-11-08] MEDS ORDERED: LEVOTHYROXINE SODIUM 50 MCG TABLET PO SCH (06:00)
[2023-11-08] MEDS ORDERED: ENOXAPARIN SODIUM 40 MG/0.4 ML SYRINGE SUBCUTANEO SCH (09:00)
[2023-11-08] MEDS ORDERED: CARVEDILOL 6.25 MG TABLET PO SCH (09:00)
[2023-11-08] MEDS ORDERED: PREDNISONE 10 MG TABLET PO SCH (09:00)
[2023-11-08] MEDS ORDERED: LOSARTAN POTASSIUM 100 MG TABLET PO SCH (09:00)
[2023-11-08] MEDS ORDERED: NIFEDIPINE 60 MG TAB.SA.OSM PO SCH (09:00)
[2023-11-08] MEDS ORDERED: ATORVASTATIN CALCIUM 40 MG TABLET PO SCH (09:00)
[2023-11-08] MEDS ORDERED: DEXTROSE 50 % IN WATER 0.5 G/ML VIAL IV PRN (11:15)
[2023-11-09 06:35] LABS: CALCIUM 8.4 mg/dL (8.5-10.1); CREATININE SERUM 1.03 mg/dL (0.55-1.02); GFR 51.3; POTASSIUM 4.54 mEq/L (3.5-5.1)
[2023-11-09] MEDS ORDERED: LOSARTAN POTASSIUM 50 MG TABLET PO SCH (09:06)
[2023-11-09] MEDS ORDERED: ANIDULAFUNGIN 100 MG VIAL IV ONE (11:30)
[2023-11-09] MEDS ORDERED: FLUCONAZOLE IN NACL,ISO-OSM 100 ML IV SCH (12:00)
[2023-11-09] MEDS ORDERED: DEXTROSE 50 % IN WATER 0.5 G/ML DISP.SYRIN IV PRN (14:15)
[2023-11-09] MEDS ORDERED: ONDANSETRON HCL 2 MG/ML VIAL IV PRN (19:30)
[2023-11-09] MEDS ORDERED: NITROGLYCERIN IN 5 % DEXTROSE 250 ML IV SCH (19:30)
[2023-11-10] MEDS ORDERED: ENALAPRILAT DIHYDRATE 2.5 MG/2 ML VIAL IV PRN (07:45)
[2023-11-10] MEDS ORDERED: DIATRIZOATE MEGLUMINE, SODIUM 30 ML BOTTLE PO STA (08:22)
[2023-11-10] MEDS ORDERED: ANIDULAFUNGIN 100 MG VIAL IV SCH (12:00)
[2023-11-11] MEDS ORDERED: NIFEDIPINE 60 MG TAB.SA.OSM PO SCH (09:00)
== END 2023-11-13 13:59 | disposition home or self-care (01) | DRG 392 ==
LOC: ER 14:22 → SEC-K 21:51 → MEDI 11-08 17:22 → SEC-K 11-08 17:48 → MEDI 11-09 11:58
PROVIDERS: General Practice; ADMIT Internal Medicine; ATTEND Internal Medicine
PROC: BW21YZZ Computerized Tomography (CT Scan) of Abdomen and Pelvis using Other Contrast (ICD-10-PCS; principal; 2023-11-11)
DX: K57.00 Diverticulitis of small intestine with perforation and abscess without bleeding (principal); N17.9 Acute kidney failure, unspecified; I10 Essential (primary) hypertension; D64.9 Anemia, unspecified

== ENCOUNTER 2024-05-08 10:50 | Emergency (ER) | payer OTHER ==
[~2024-05-08] VITALS: Ht 152.4 cm; Wt 52.2 kg
[~2024-05-08 10:50] MED LIST changes: +CARVEDILOL6.25 MG; +NEURONTIN300 MG PO; +NIFEDIPINE20 MG
[2024-05-08] MEDS ORDERED: ORPHENADRINE CITRATE 30 MG/ML AMPUL IM STA (13:44)
[2024-05-08] MEDS ORDERED: ORPHENADRINE CITRATE 30 MG/ML AMPUL ONE (14:24)
== END 2024-05-08 15:53 | disposition home or self-care (01) ==
LOC: ER 10:53
DX: R07.81 Pleurodynia (principal); Z88.6 Allergy status to analgesic agent

== ENCOUNTER 2024-05-10 12:54 | Emergency (ER) | payer OTHER ==
[~2024-05-10] VITALS: Ht 152.4 cm; Wt 52.2 kg
[2024-05-10] MEDS ORDERED: ORPHENADRINE CITRATE 30 MG/ML AMPUL ONE (16:59)
[2024-05-10] MEDS ORDERED: ORPHENADRINE CITRATE 30 MG/ML AMPUL IM ONE (17:00)
[2024-05-10 17:29] LABS: PH,URINE 5.5 (5.0-8.0); URINE APPEARANCE Cloudy; URINE BILIRRUBIN Negative (NEGATIVE); URINE BLOOD Negative; URINE COLOR Yellow; URINE GLUCOSE Negative (NEGATIVE); URINE KETONE Negative (NEGATIVE); URINE LEUKOCYTE Moderate; URINE NITRATE Negative; URINE PROTEIN 30 (NEGATIVE); URINE UROBILINOGEN 0.2 E.U./dl
[2024-05-10 17:30] LABS: HEMATOCRIT 34.8 % (36.0-45.00); HEMOGLOBIN 11.1 g/dL (12.0-15.00); MEAN CELL VOLUME 84.2 fL (80.00-100.00); MEAN CORPUSCULAR HEMOGLOBIN 26.9 pg (27.00-32.0); PLATELET COUNT 274 K/uL (150-450); RED BLOOD COUNT 4.13 M/uL (4.00-6.00); RED CELL DISTRIBUTION WIDTH 18.9 % (11.5-14.5)
[2024-05-10 17:33] LABS: URINE BACTERIA 796.6 uL (0.0-1933); URINE EPITHELIAL CELLS 95.7 uL (0.0-38.8); URINE RBC 6.3 uL (0.0-20.8); URINE WBC 235.2 uL (0.0-23.2)
[2024-05-10 17:53] LABS: ALBUMIN 3.1 gm/dL (3.4-5.0); BILIRUBIN TOTAL 0.29 mg/dL (0.3-1.2); CREATININE SERUM 1.01 mg/dL (0.55-1.02); GFR 52.47; GLOBULINA 3.6 G/DL (2.4-3.5); POTASSIUM 4.75 mEq/L (3.5-5.1); TOTAL PROTEIN 6.7 gm/dL (6.4-8.2)
[2024-05-10 18:01] LABS: URINE CAST 0.14 uL (0.0-1.40)
[2024-05-10] MEDS ORDERED: PERCOGESIC EXT1 EACH PO (21:08)
[2024-05-10] MEDS ORDERED: AMOX-CLAV 875-1 EACH PO (21:08)
== END 2024-05-10 21:20 ==
LOC: ER 12:57
PROVIDERS: General Practice
DX: K57.32 Diverticulitis of large intestine without perforation or abscess without bleeding (principal); K59.00 Constipation, unspecified; E11.9 Type 2 diabetes mellitus without complications; Z79.84 Long term (current) use of oral hypoglycemic drugs; I10 Essential (primary) hypertension; Z88.8 Allergy status to other drugs, medicaments and biological substances; Z87.09 Personal history of other diseases of the respiratory system

== ENCOUNTER 2024-05-13 07:04 | Emergency (ER) | payer OTHER ==
[~2024-05-13] VITALS: Ht 152.4 cm; Wt 52.2 kg
[~2024-05-13 07:04] MED LIST changes: +AMOX-CLAV 875-1 EACH PO; +PERCOGESIC EXT1 EACH PO
[2024-05-13] MEDS ORDERED: CEFTRIAXONE SODIUM 1,000 MG VIAL IV ONE (09:15)
[2024-05-13] MEDS ORDERED: LEVALBUTEROL HCL 1.25 MG/3 ML SOLUTION IH SCH (09:15)
[2024-05-13] MEDS ORDERED: KETOROLAC TROMETHAMINE 60 MG VIAL IM ONE ×2 (09:15→10:04)
[2024-05-13] MEDS ORDERED: MONTELUKAST SODIUM 10 MG TABLET PO ONE (09:15)
[2024-05-13] MEDS ORDERED: IPRATROPIUM BROMIDE 0.5 MG/2.5 ML AMPUL.NEB IH SCH (09:15)
[2024-05-13] MEDS ORDERED: BENZONATATE 200 MG CAPSULE PO ONE (09:15)
[2024-05-13] MEDS ORDERED: LEVALBUTEROL HCL 1.25 MG/3 ML SOLUTION IH ONE (09:38)
[2024-05-13] MEDS ORDERED: IPRATROPIUM BROMIDE 0.5 MG/2.5 ML AMPUL.NEB IH ONE (09:39)
[2024-05-13 10:04] LABS: ABG PH 7.429 (7.35-7.45); ABG PO2 69.7 mmHg (80-100); ABG pCO2 35.6 mmHg (35-45); BASE EXCESS -0.7 mmol/l; SaO2 94.2 %; Tco2 24.1 mmol/l
[2024-05-13] MEDS ORDERED: CEFTRIAXONE SODIUM 1,000 MG VIAL ONE (10:04)
[2024-05-13 10:07] LABS: allen test SATISFACTORY; o2 21 %; puncture site RADIAL RIGHT
[2024-05-13 11:14] LABS: HEMATOCRIT 34.6 % (36.0-45.00); MEAN CELL VOLUME 83.8 fL (80.00-100.00); MEAN CORPUSCULAR HEMOGLOBIN 26.7 pg (27.00-32.0); MEAN CORPUSCULAR HGB CONC 31.9 g/dl (32.0-36.0); PLATELET COUNT 279 K/uL (150-450); RED BLOOD COUNT 4.13 M/uL (4.00-6.00); RED CELL DISTRIBUTION WIDTH 18.9 % (11.5-14.5)
[2024-05-13 11:19] LABS: INR 1.01; PARTIAL THROMBOPLASTIN TIME 24.6 SECONDS (22.0-34.0)
[2024-05-13 11:33] LABS: PH,URINE 5.5 (5.0-8.0); URINE APPEARANCE Clear; URINE BILIRRUBIN Negative (NEGATIVE); URINE BLOOD Negative; URINE COLOR Yellow; URINE GLUCOSE Negative (NEGATIVE); URINE KETONE Negative (NEGATIVE); URINE LEUKOCYTE Small; URINE NITRATE Negative; URINE PROTEIN 30 (NEGATIVE); URINE UROBILINOGEN 0.2 E.U./dl
[2024-05-13 11:35] LABS: URINE EPITHELIAL CELLS 120.4 uL (0.0-38.8); URINE RBC 6.6 uL (0.0-20.8); URINE WBC 50.6 uL (0.0-23.2)
[2024-05-13 11:56] LABS: URINE CAST 0.29 uL (0.0-1.40)
[2024-05-13 12:16] LABS: ALBUMIN 3.2 gm/dL (3.4-5.0); BILIRUBIN TOTAL 0.33 mg/dL (0.3-1.2); CALCIUM 9.2 mg/dL (8.5-10.1); CREATININE SERUM 1.24 mg/dL (0.55-1.02); GFR 41.41; GLOBULINA 3.6 G/DL (2.4-3.5); TOTAL PROTEIN 6.8 gm/dL (6.4-8.2)
== END 2024-05-13 16:14 | disposition home or self-care (01) ==
LOC: ER 07:07
PROVIDERS: General Practice
DX: J45.998 Other asthma (principal); E11.9 Type 2 diabetes mellitus without complications; Z79.84 Long term (current) use of oral hypoglycemic drugs; I10 Essential (primary) hypertension; Z20.822 Contact with and (suspected) exposure to COVID-19; Z88.8 Allergy status to other drugs, medicaments and biological substances; Z88.6 Allergy status to analgesic agent; Z88.5 Allergy status to narcotic agent

== ENCOUNTER 2024-05-18 11:22 | Inpatient (IN) | payer OTHER ==
[~2024-05-18] VITALS: Ht 33 cm; Wt 52.2 kg
--- NOTE | 2024-05-18 11:37 | NUR ---
PACIENTE FEMENINA ALERTA Y ORIENTADA X3, REFIERE TENER DIFICULTAD AL RESPIRAR Y VERBALIZA TENER ASMA.
[2024-05-18] MEDS ORDERED: LEVALBUTEROL HCL 1.25 MG/3 ML SOLUTION IH SCH ×2 (13:30→21:00)
[2024-05-18] MEDS ORDERED: IPRATROPIUM BROMIDE 0.5 MG/2.5 ML AMPUL.NEB IH SCH (13:30)
[2024-05-18] MEDS ORDERED: MAGNESIUM SULFATE IN WATER 2 GM/50 ML PIGGYBAG IV ONE (13:30)
[2024-05-18] MEDS ORDERED: BENZONATATE 200 MG CAPSULE PO ONE (13:30)
[2024-05-18] MEDS ORDERED: METHYLPREDNISOLONE SOD SUCC 40 MG VIAL IV ONE (13:30)
[2024-05-18] MEDS ORDERED: PIPERACILLIN/TAZOBACTAM SODIUM 3.375 GM VIAL IV ONE ×2 (13:30→13:34)
[2024-05-18] MEDS ORDERED: MAGNESIUM SULFATE 50% 1,000 MG/2 ML VIAL ONE (13:33)
[2024-05-18] MEDS ORDERED: METHYLPREDNISOLONE SOD SUCC 40 MG VIAL ONE ×2 (13:34→23:39)
[2024-05-18] MEDS ORDERED: LEVALBUTEROL HCL 1.25 MG/3 ML SOLUTION IH ONE (14:01)
[2024-05-18] MEDS ORDERED: IPRATROPIUM BROMIDE 0.5 MG/2.5 ML AMPUL.NEB IH ONE (14:01)
[2024-05-18 14:20] LABS: INR 1.03; PARTIAL THROMBOPLASTIN TIME 22.8 SECONDS (22.0-34.0); PROTHROMBIN TIME 11.2 SECONDS (9.0-11.5)
[2024-05-18 14:22] LABS: ALBUMIN 2.9 gm/dL (3.4-5.0); BILIRUBIN TOTAL 0.25 mg/dL (0.3-1.2); C-REACTIVE PROTEIN 0.53 MG/DL (0.00-0.29); CREATININE SERUM 1.1 mg/dL (0.55-1.02); GFR 47.55; GLOBULINA 3.9 G/DL (2.4-3.5); POTASSIUM 5.33 mEq/L (3.5-5.1); TOTAL PROTEIN 6.8 gm/dL (6.4-8.2)
[2024-05-18 14:30] LABS: ERYTHROCYTE SEDIMENTATION RATE 129 mm/hr; HEMATOCRIT 32.1 % (36.0-45.00); HEMOGLOBIN 10.2 g/dL (12.0-15.00); MEAN CELL VOLUME 84.3 fL (80.00-100.00); MEAN CORPUSCULAR HEMOGLOBIN 26.7 pg (27.00-32.0); MEAN CORPUSCULAR HGB CONC 31.7 g/dl (32.0-36.0); PLATELET COUNT 245 K/uL (150-450); RED BLOOD COUNT 3.81 M/uL (4.00-6.00); RED CELL DISTRIBUTION WIDTH 19.3 % (11.5-14.5)
--- NOTE | 2024-05-18 14:49 | NUR ---
SE MABLE MUESTRA DE LAB, SE CANALIZA Y SE ADMINISTRA MED SUNDAY ORDEN MEDICA
[2024-05-18 16:02] LABS: ABG PH 7.394 (7.35-7.45); ABG PO2 87.4 mmHg (80-100); ABG pCO2 32.8 mmHg (35-45); BASE EXCESS -4.2 mmol/l; BICARBONATE 19.6 mmol/l (23-25); SaO2 96.4 %; Tco2 20.6 mmol/l; allen test SATISFACTORY; o2 21 %; puncture site RADIAL LEFT
[2024-05-18 17:26] LABS: URINE APPEARANCE Clear; URINE BILIRRUBIN Negative (NEGATIVE); URINE BLOOD Negative; URINE COLOR Yellow; URINE GLUCOSE Negative (NEGATIVE); URINE KETONE Negative (NEGATIVE); URINE LEUKOCYTE Negative; URINE NITRATE Negative; URINE PROTEIN 30 (NEGATIVE); URINE UROBILINOGEN 0.2 E.U./dl
[2024-05-18 17:31] LABS: URINE BACTERIA 9.7 uL (0.0-1933); URINE EPITHELIAL CELLS 14.2 uL (0.0-38.8); URINE RBC 2.3 uL (0.0-20.8); URINE WBC 5.2 uL (0.0-23.2)
[2024-05-18] MEDS ORDERED: NIFEDIPINE 60 MG TAB.SA.OSM PO SCH (19:45)
[2024-05-18] MEDS ORDERED: PREDNISONE 10 MG TABLET PO SCH (19:47)
[2024-05-18] MEDS ORDERED: MONTELUKAST SODIUM 10 MG TABLET PO SCH (19:48)
[2024-05-18] MEDS ORDERED: AZITHROMYCIN 500 MG VIAL IV SCH (19:51)
[2024-05-18] MEDS ORDERED: GABAPENTIN 400 MG CAPSULE PO PRN (20:00)
[2024-05-18] MEDS ORDERED: 0.9 % SODIUM CHLORIDE 1,000 ML IV SCH (20:00)
[2024-05-18] MEDS ORDERED: ONDANSETRON HCL 4 MG in DEXTROSE 5 % IN WATER 50 ML IV PRN (20:00)
[2024-05-18] MEDS ORDERED: MORPHINE SULFATE 2 MG/ML CARTRIDGE IV PRN (20:00)
[2024-05-18] MEDS ORDERED: ACETAMINOPHEN 500 MG GEL..CAP PO PRN (20:00)
[2024-05-18] MEDS ORDERED: INSULIN LISPRO 1,000 UNIT/10 ML UNITS SUBCUTANEO PRN (20:00)
[2024-05-18] MEDS ORDERED: BENZONATATE 100 MG CAPSULE PO PRN (20:00)
[2024-05-18] MEDS ORDERED: DEXTROSE 50 % IN WATER 0.5 G/ML DISP.SYRIN IV PRN (20:00)
[2024-05-18] MEDS ORDERED: METHYLPREDNISOLONE SOD SUCC 40 MG VIAL IV SCH (21:00)
[2024-05-18] MEDS ORDERED: BUDESONIDE 0.5 MG/2 ML AMPUL.NEB IH SCH (21:00)
[2024-05-18] MEDS ORDERED: FAMOTIDINE/PF 20 MG in 0.9 % SODIUM CHLORIDE 8 ML IV PUSH SCH (21:00)
[2024-05-18] MEDS ORDERED: AZITHROMYCIN 500 MG VIAL IV ONE (23:39)
[2024-05-18] MEDS ORDERED: FAMOTIDINE/PF 20 MG/2 ML VIAL ONE (23:39)
[2024-05-19] MEDS ORDERED: IPRATROPIUM BROMIDE 0.5 MG/2.5 ML AMPUL.NEB IH SCH
[2024-05-19] MEDS ORDERED: IPRATROPIUM BROMIDE 0.5 MG/2.5 ML AMPUL.NEB IH ONE ×2 (00:29→08:22)
[2024-05-19] MEDS ORDERED: LEVALBUTEROL HCL 1.25 MG/3 ML SOLUTION IH ONE ×2 (00:29→08:22)
[2024-05-19] MEDS ORDERED: LEVOTHYROXINE SODIUM 50 MCG TABLET PO SCH (06:00)
[2024-05-19 07:30] LABS: HEMATOCRIT 29.6 % (36.0-45.00); MEAN CELL VOLUME 82.5 fL (80.00-100.00); MEAN CORPUSCULAR HEMOGLOBIN 27.9 pg (27.00-32.0); MEAN CORPUSCULAR HGB CONC 33.8 g/dl (32.0-36.0); PLATELET COUNT 239 K/uL (150-450); RED BLOOD COUNT 3.58 M/uL (4.00-6.00); RED CELL DISTRIBUTION WIDTH 19.6 % (11.5-14.5)
[2024-05-19 07:39] LABS: INR 1.01; PARTIAL THROMBOPLASTIN TIME 23.2 SECONDS (22.0-34.0)
[2024-05-19 08:00] VITALS: BP 160/82; O2SAT 97
[2024-05-19 08:04] LABS: ALBUMIN 2.7 gm/dL (3.4-5.0); ALKALINE PHOSPHATASE 86 U/L (50-136); ALT/SGPT 18 U/L (12-78); ANION GAP 13 (10.0-20.0); AST/SGOT 18 U/L (15-37); BILIRUBIN TOTAL 0.22 mg/dL (0.3-1.2); BILIRUBIN,CONJUGATED < 0.10 mg/dL (0.0-0.2); BILIRUBIN,UNCONJUGATED 0.12 mg/dL (0.0-0.6); BLOOD UREA NITROGEN 27 mg/dL (7-18); BUN CREA RATIO 29 (7.0-25.0); CALCIUM 8.4 mg/dL (8.5-10.1); CARBON DIOXIDE 22 mEq/L (21-32); CHLORIDE 113 mmol/L (98-107); CHOL HDL RATIO 3.6 (0-5.0); CHOLESTEROL 246 mg/dL (0-200); CREATININE SERUM 0.93 mg/dL (0.55-1.02); GFR 57.72; GLOBULINA 3.7 G/DL (2.4-3.5); GLUCOSE FASTING 182 mg/dL (65-100); HDL 68 mg/dl (40-60); LDL 162 mg/dl (0-130); LIPASE 38 U/L (13-75); OSMOLALITY SERUM 295 MOSM/KG (275-295); POTASSIUM 5.01 mEq/L (3.5-5.1); SODIUM 143 mmol/L (136-145); TOTAL PROTEIN 6.4 gm/dL (6.4-8.2); TRIGLYCERIDES 79 mg/dL (0-150); VLDL 15 (0-39)
[2024-05-19] MEDS ORDERED: BUDESONIDE 0.5 MG/2 ML AMPUL.NEB IH ONE (08:22)
[2024-05-19 08:33] LABS: C-REACTIVE PROTEIN 0.44 MG/DL (0.00-0.29)
[2024-05-19] MEDS ORDERED: IRBESARTAN 300 MG TABLET PO SCH (09:00)
[2024-05-19] MEDS ORDERED: CETIRIZINE HCL 5 MG/5 ML ML PO SCH (09:00)
[2024-05-19] MEDS ORDERED: PATIENTS OWN MEDICATION (MEDICAMENTO EN PISO) PO SCH ×2 (09:00→17:00)
[2024-05-19] MEDS ORDERED: CARVEDILOL 6.25 MG TABLET PO SCH (09:00)
[2024-05-19] MEDS ORDERED: PREDNISONE 20 MG TABLET PO SCH (09:00)
[2024-05-19] MEDS ORDERED: OSELTAMIVIR PHOSPHATE 75 MG CAPSULE PO NR (11:00)
[2024-05-19] MEDS ORDERED: OSELTAMIVIR PHOSPHATE 30MG CAP PO SCH (17:00)
[2024-05-19 18:36] VITALS: BP 196/73
[2024-05-20 02:05] VITALS: BP 126/85; O2SAT 97
[2024-05-20 06:31] LABS: MEAN CELL VOLUME 82.9 fL (80.00-100.00); MEAN CORPUSCULAR HEMOGLOBIN 27.3 pg (27.00-32.0); PLATELET COUNT 227 K/uL (150-450); RED BLOOD COUNT 3.26 M/uL (4.00-6.00); RED CELL DISTRIBUTION WIDTH 19.4 % (11.5-14.5)
[2024-05-20 06:31] LABS: PH,URINE 5.5 (5.0-8.0); URINE APPEARANCE Clear; URINE BILIRRUBIN Negative (NEGATIVE); URINE BLOOD Negative; URINE COLOR Yellow; URINE KETONE Negative (NEGATIVE); URINE LEUKOCYTE Negative; URINE NITRATE Negative; URINE PROTEIN 30 (NEGATIVE); URINE UROBILINOGEN 0.2 E.U./dl
[2024-05-20 06:32] LABS: URINE BACTERIA 9.7 uL (0.0-1933); URINE EPITHELIAL CELLS 44.1 uL (0.0-38.8); URINE WBC 5.8 uL (0.0-23.2)
[2024-05-20 06:35] LABS: HEMOGLOBIN 8.9 g/dL (12.0-15.00)
[2024-05-20 07:00] LABS: URINE CAST 0.44 uL (0.0-1.40); URINE GLUCOSE >=1000 MG/DL (NEGATIVE); URINE RBC 0.5 uL (0.0-20.8)
[2024-05-20] MEDS ORDERED: AZITHROMYCIN 500 MG VIAL IV ONE (08:15)
[2024-05-20] MEDS ORDERED: FAMOTIDINE/PF 20 MG in 0.9 % SODIUM CHLORIDE 8 ML IV PUSH SCH (09:00)
[2024-05-20] MEDS ORDERED: FUROsemide 20 MG TABLET PO SCH (09:00)
[2024-05-20 09:27] VITALS: BP 126/54; O2SAT 97
[2024-05-20] MEDS ORDERED: IRBESARTAN 300 MG TABLET PO SCH (11:44)
[2024-05-20] MEDS ORDERED: RIVAROXABAN 10 MG TAB PO SCH (11:44)
[2024-05-20] MEDS ORDERED: MULTIVIT-MIN/IRON FUM/FOLIC AC 1 TAB TABLET PO SCH (12:11)
[2024-05-20] MEDS ORDERED: XARELTO 2.5 MG PO SCH (17:00)
[2024-05-20] MEDS ORDERED: METHYLPREDNISOLONE SOD SUCC 40 MG VIAL IV SCH (17:00)
[2024-05-20 18:09] VITALS: BP 159/74; O2SAT 98
[2024-05-21 00:50] VITALS: BP 164/72; O2SAT 97
[2024-05-21 08:35] VITALS: BP 167/73; O2SAT 97
[2024-05-21] MEDS ORDERED: AZITHROMYCIN 500 MG VIAL IV ONE (08:50)
[2024-05-21 18:00] VITALS: BP 177/65
[2024-05-22 03:00] VITALS: BP 175/72; O2SAT 97
[2024-05-22] MEDS ORDERED: AZITHROMYCIN 500 MG VIAL IV ONE (08:22)
[2024-05-22 08:32] VITALS: BP 150/77; O2SAT 98
[2024-05-22 08:35] VITALS: BP 150/77; O2SAT 98
[2024-05-22 08:42] LABS: HEMATOCRIT 29.4 % (36.0-45.00); MEAN CELL VOLUME 84.5 fL (80.00-100.00); MEAN CORPUSCULAR HGB CONC 31.9 g/dl (32.0-36.0); PLATELET COUNT 226 K/uL (150-450); RED BLOOD COUNT 3.47 M/uL (4.00-6.00); RED CELL DISTRIBUTION WIDTH 19.9 % (11.5-14.5)
[2024-05-22 08:49] LABS: HEMOGLOBIN 9.4 g/dL (12.0-15.00)
== END 2024-05-22 12:33 | disposition home or self-care (01) | DRG 194 ==
LOC: ER 11:24 → SEC-K 21:31 → MEDJ 21:31 → MEDI 05-19 08:19 → MEDJ 05-19 09:34
PROVIDERS: General Practice; Student in an Organized Health Care Education/Training Program; ADMIT Internal Medicine; ATTEND Internal Medicine
PROC: BB24ZZZ Computerized Tomography (CT Scan) of Bilateral Lungs (ICD-10-PCS; 2024-05-18)
PROC: 8E0ZXY6 Isolation (ICD-10-PCS; principal; 2024-05-19)
PROC: 3E0F7GC Introduction of Other Therapeutic Substance into Respiratory Tract, Via Natural or Artificial Opening (ICD-10-PCS; 2024-05-19)
DX: J10.1 Influenza due to other identified influenza virus with other respiratory manifestations (principal); J45.41 Moderate persistent asthma with (acute) exacerbation

== ENCOUNTER 2024-08-02 06:41 | Day surgery (SDC) | payer OTHER ==
[2024-08-02] MEDS ORDERED: DIPHENHYDRAMINE HCL 50 MG/ML VIAL 1ML IV ONE (10:30)
[2024-08-02] MEDS ORDERED: fentaNYL CITRATE 50 MCG/ML AMPUL IV ONE (10:30)
[2024-08-02] MEDS ORDERED: MIDAZOLAM HCL 2 MG/2 ML VIAL IV ONE (10:30)
== END 2024-08-02 11:55 | disposition home or self-care (01) ==
LOC: AMB-ENDOS 06:41
PROVIDERS: ATTEND Surgery
DX: K57.30 Diverticulosis of large intestine without perforation or abscess without bleeding (principal); R10.9 Unspecified abdominal pain; K64.8 Other hemorrhoids; K63.89 Other specified diseases of intestine

== ENCOUNTER 2024-10-22 14:02 | Inpatient (IN) | payer OTHER ==
[~2024-10-22] VITALS: Ht 152.4 cm; Wt 54.0 kg
--- NOTE | 2024-10-22 14:35 | NUR ---
SE RECIBE PACIENTE ALERTA Y ORIENTADO X3 REFIERE VENIR POR DOLOR ABDOMINAL Y FIEBRE DESDE EL ZENON DE LILIA.
[2024-10-22] MEDS ORDERED: KETOROLAC TROMETHAMINE 30 MG VIAL IV ONE (16:45)
[2024-10-22] MEDS ORDERED: ONDANSETRON HCL 2 MG/ML VIAL IV ONE (16:45)
[2024-10-22] MEDS ORDERED: 0.9 % SODIUM CHLORIDE 1,000 ML IV ONE (16:45)
[2024-10-22] MEDS ORDERED: FAMOtidine 10 MG/ML (4ML VIAL) IV ONE (16:45)
[2024-10-22] MEDS ORDERED: CIPROFLOXACIN IN 5 % DEXTROSE 400 MG/200 ML PIGGYBAG IV ONE ×2 (16:45→17:05)
[2024-10-22] MEDS ORDERED: ONDANSETRON HCL 2 MG/ML VIAL ONE (17:05)
[2024-10-22] MEDS ORDERED: KETOROLAC TROMETHAMINE 30 MG VIAL ONE (17:05)
[2024-10-22] MEDS ORDERED: FAMOTIDINE/PF 20 MG/2 ML VIAL ONE (17:05)
[2024-10-22 17:11] LABS: BASO % 0.1 % (0.1-1.2); EOS # 0.01 (0.04-0.54); EOS % 0.1 % (0.7-7.0); LYMPH # 1.58 (1.18-3.74); LYMPH % 9.1 % (19.3-53.1); MEAN PLATELET VOLUME 9.90 fl (9.4-12.4); MONO # 0.78 (0.24-0.82); MONO % 4.5 % (4.7-12.5); NEUT # 14.96 (1.56-6.13); NEUT % 85.7 % (34.0-71.1); RED CELL DISTRIBUTION WIDTH 19.5 % (11.6-14.4)
[2024-10-22 17:32] LABS: INR 1.11
[2024-10-22 17:36] LABS: ALT/SGPT 16.0 U/L (12-78); AST/SGOT 12.0 U/L (15-37); BILIRUBIN TOTAL 0.36 mg/dL (0.3-1.2); BUN CREA RATIO 20.0 (7.0-25.0); CREATININE SERUM 1.33 mg/dL (0.55-1.02); GFR 38.1; GLOBULINA 3.7 G/DL (2.4-3.5); GLUCOSE FASTING 114.0 mg/dL (65-100); OSMOLALITY SERUM 291.0 MOSM/KG (275-295)
--- NOTE | 2024-10-22 18:55 | NUR ---
SE EJECUTAN ORDENES MEDICAS EN PROCTOR TOTALIDAD.
[2024-10-22 19:09] LABS: URINE APPEARANCE Clear; URINE BILIRRUBIN Negative (NEGATIVE); URINE BLOOD Negative; URINE COLOR Yellow; URINE GLUCOSE Negative (NEGATIVE); URINE KETONE Negative (NEGATIVE); URINE LEUKOCYTE Trace; URINE NITRATE Negative; URINE UROBILINOGEN 1.0 E.U./dl
[2024-10-22 19:11] LABS: URINE PROTEIN 100 (NEGATIVE)
[2024-10-22 19:13] LABS: URINE BACTERIA 446.7 uL (0.0-1933); URINE EPITHELIAL CELLS 17.5 uL (0.0-38.8); URINE RBC 4.5 uL (0.0-20.8); URINE WBC 12.6 uL (0.0-23.2)
[2024-10-22 19:15] LABS: URINE CAST 0.14 uL (0.0-1.40)
[2024-10-23] MEDS ORDERED: PIPERACILLIN/TAZOBACTAM SODIUM 3.375 GM in DEXTROSE 5 % IN WATER 100 ML IV SCH (00:14)
[2024-10-23] MEDS ORDERED: ACETAMINOPHEN 500 MG GEL..CAP PO PRN (00:15)
[2024-10-23] MEDS ORDERED: 0.9 % SODIUM CHLORIDE 1,000 ML IV SCH (00:15)
[2024-10-23] MEDS ORDERED: ACETAMINOPHEN 500 MG GEL..CAP PO ONE (02:40)
[2024-10-23 03:34] VITALS: BP 131/46; O2SAT 96
[2024-10-23] MEDS ORDERED: ALBUTEROL SULFATE 3 ML/2.5 MG AMPUL.NEB IH ONE (05:48)
[2024-10-23] MEDS ORDERED: LEVOTHYROXINE SODIUM 50 MCG TABLET PO SCH (06:00)
[2024-10-23 08:44] VITALS: BP 136/57; O2SAT 96
[2024-10-23] MEDS ORDERED: FAMOTIDINE/PF 20 MG in 0.9 % SODIUM CHLORIDE 8 ML IV PUSH SCH (09:00)
[2024-10-23] MEDS ORDERED: ROSUVASTATIN CALCIUM 20 MG TABLET PO SCH (09:00)
[2024-10-23] MEDS ORDERED: GABAPENTIN 300 MG CAPSULE PO SCH (09:00)
[2024-10-23] MEDS ORDERED: IRBESARTAN 300 MG TABLET PO SCH (09:00)
[2024-10-23] MEDS ORDERED: ENOXAPARIN SODIUM 40 MG/0.4 ML SYRINGE SUBCUTANEO SCH (09:00)
[2024-10-23] MEDS ORDERED: CARVEDILOL 6.25 MG TABLET PO SCH (09:00)
[2024-10-23] MEDS ORDERED: NIFEDIPINE 30 MG TAB.SA.OSM PO SCH (17:00)
[2024-10-23 18:07] VITALS: BP 144/58; O2SAT 95
[2024-10-24 01:21] VITALS: BP 145/55; O2SAT 98
[2024-10-24] MEDS ORDERED: INSULIN LISPRO 1,000 UNIT/10 ML UNITS SUBCUTANEO PRN (06:45)
[2024-10-24] MEDS ORDERED: DEXTROSE 50 % IN WATER 0.5 G/ML DISP.SYRIN IV PRN (06:45)
[2024-10-24] MEDS ORDERED: DEXTROSE 50 % IN WATER 0.5 G/ML VIAL IV ONE (08:25)
[2024-10-24 08:55] VITALS: BP 116/46
[2024-10-24] MEDS ORDERED: PREDNISONE 5 MG TABLET PO SCH ×2 (09:00→11:00)
[2024-10-24 09:14] LABS: BASO % 0.1 % (0.1-1.2); EOS # 0.18 (0.04-0.54); EOS % 1.5 % (0.7-7.0); LYMPH # 1.95 (1.18-3.74); LYMPH % 16.6 % (19.3-53.1); MEAN PLATELET VOLUME 10.50 fl (9.4-12.4); MONO # 1.15 (0.24-0.82); MONO % 9.8 % (4.7-12.5); NEUT # 8.40 (1.56-6.13); NEUT % 71.6 % (34.0-71.1); RED CELL DISTRIBUTION WIDTH 19.3 % (11.6-14.4)
[2024-10-24] MEDS ORDERED: DEXTROSE 5 %-0.45 % SOD CHLORD 1,000 ML IV SCH (09:45)
[2024-10-24 10:05] LABS: BUN CREA RATIO 12.0 (7.0-25.0); CREATININE SERUM 1.15 mg/dL (0.55-1.02); GFR 45.06; GLUCOSE FASTING 52.0 mg/dL (65-100); OSMOLALITY SERUM 285.0 MOSM/KG (275-295)
[2024-10-24 16:34] VITALS: BP 136/54
[2024-10-24] MEDS ORDERED: AA 2.36%/D6.8W/FAT/E-LYTES NO9 1,440 ML IV SCH (17:00)
[2024-10-24] MEDS ORDERED: MELATONIN 5 MG TABLET PO SCH (21:00)
[2024-10-25 00:41] VITALS: BP 118/75; O2SAT 97
[2024-10-25] MEDS ORDERED: LEVOTHYROXINE SODIUM 50 MCG TABLET PO SCH (06:00)
[2024-10-25 06:17] LABS: BASO % 0.1 % (0.1-1.2); EOS # 0.12 (0.04-0.54); EOS % 1.1 % (0.7-7.0); LYMPH # 1.37 (1.18-3.74); LYMPH % 13.0 % (19.3-53.1); MEAN PLATELET VOLUME 10.00 fl (9.4-12.4); MONO # 0.89 (0.24-0.82); MONO % 8.5 % (4.7-12.5); NEUT # 8.08 (1.56-6.13); NEUT % 76.9 % (34.0-71.1); RED CELL DISTRIBUTION WIDTH 18.7 % (11.6-14.4)
[2024-10-25 07:02] LABS: BUN CREA RATIO 10.0 (7.0-25.0); CREATININE SERUM 1.09 mg/dL (0.55-1.02); GFR 47.94; GLUCOSE FASTING 192.0 mg/dL (65-100); OSMOLALITY SERUM 290.0 MOSM/KG (275-295)
[2024-10-25] MEDS ORDERED: FAMOTIDINE/PF 20 MG/2 ML VIAL ONE (08:36)
[2024-10-25 09:38] VITALS: BP 134/68
[2024-10-25] MEDS ORDERED: 0.9 % SODIUM CHLORIDE 1,000 ML IV SCH (10:00)
[2024-10-25 16:54] VITALS: BP 132/70; O2SAT 96
[2024-10-25] MEDS ORDERED: AA 5 %/CALCIUM/LYTES/DEXT 20 % 2,000 ML CENTRAL SCH (17:00)
[2024-10-25] MEDS ORDERED: FAT EMULSION/OLIVE/SOY/PHOSPHO 250 ML IV SCH (21:00)
[2024-10-26 02:45] VITALS: BP 145/64; O2SAT 95
[2024-10-26] MEDS ORDERED: LACTOBACILLUS ACIDOPHILUS 1 CAP CAP PO SCH (09:00)
[2024-10-26 09:13] VITALS: BP 156/57; O2SAT 97
[2024-10-26] MEDS ORDERED: IPRATROPIUM BROMIDE 0.5 MG/2.5 ML AMPUL.NEB IH SCH (17:15)
[2024-10-26 18:22] VITALS: BP 170/70; O2SAT 96
[2024-10-26 18:23] VITALS: BP 174/98; O2SAT 99
[2024-10-26] MEDS ORDERED: INSULIN NPH HUMAN ISOPHANE 1,000 UNITS/10 ML UNITS SUBCUTANEO STA (21:44)
[2024-10-27 02:01] VITALS: BP 159/60; O2SAT 97
[2024-10-27 08:13] LABS: BASO % 0.3 % (0.1-1.2); EOS # 0.13 (0.04-0.54); EOS % 1.8 % (0.7-7.0); LYMPH # 1.36 (1.18-3.74); LYMPH % 18.9 % (19.3-53.1); MEAN PLATELET VOLUME 10.40 fl (9.4-12.4); MONO # 0.81 (0.24-0.82); MONO % 11.3 % (4.7-12.5); NEUT # 4.80 (1.56-6.13); NEUT % 66.9 % (34.0-71.1); RED CELL DISTRIBUTION WIDTH 18.5 % (11.6-14.4)
[2024-10-27 08:26] LABS: BUN CREA RATIO 25.0 (7.0-25.0); CREATININE SERUM 0.99 mg/dL (0.55-1.02); GFR 53.57; GLUCOSE FASTING 184.0 mg/dL (65-100); OSMOLALITY SERUM 292.0 MOSM/KG (275-295)
[2024-10-27] MEDS ORDERED: INSULIN NPH HUMAN ISOPHANE 1,000 UNITS/10 ML UNITS SUBCUTANEO SCH ×2 (09:00→21:00)
[2024-10-27 09:53] VITALS: BP 168/60; O2SAT 96
[2024-10-27 18:05] VITALS: BP 172/66; O2SAT 97
[2024-10-28 01:56] VITALS: BP 151/81; O2SAT 97
[2024-10-28 06:31] LABS: INR 1.0
[2024-10-28 06:37] LABS: BASO % 0.3 % (0.1-1.2); EOS # 0.17 (0.04-0.54); EOS % 2.0 % (0.7-7.0); LYMPH # 1.80 (1.18-3.74); LYMPH % 20.7 % (19.3-53.1); MEAN PLATELET VOLUME 10.40 fl (9.4-12.4); MONO # 0.88 (0.24-0.82); MONO % 10.1 % (4.7-12.5); NEUT # 5.71 (1.56-6.13); NEUT % 65.5 % (34.0-71.1); RED CELL DISTRIBUTION WIDTH 18.5 % (11.6-14.4)
[2024-10-28 06:53] LABS: ALT/SGPT 16 U/L (12-78); AST/SGOT 13 U/L (15-37); BILIRUBIN TOTAL 0.27 mg/dL (0.3-1.2); BILIRUBIN,CONJUGATED < 0.10 mg/dL (0.0-0.2); BUN CREA RATIO 24 (7.0-25.0); CHOL HDL RATIO 3.4 (0-5.0); CREATININE SERUM 1.03 mg/dL (0.55-1.02); GFR 51.17; GLOBULINA 3.2 G/DL (2.4-3.5); GLUCOSE FASTING 171 mg/dL (65-100); HDL 37 mg/dl (40-60); LDL 65 mg/dl (0-130); OSMOLALITY SERUM 295 MOSM/KG (275-295); VLDL 25 (0-39)
[2024-10-28 08:21] VITALS: BP 168/73
[2024-10-28 08:36] LABS: UREA CLEARANCE 18.0 ML/MIN
[2024-10-29] VITALS: BP 171/65; O2SAT 98
[2024-10-29 04:57] VITALS: BP 151/73; O2SAT 97
[2024-10-29 09:36] VITALS: BP 151/61
[2024-10-29] MEDS ORDERED: DEXTROSE 50 % IN WATER 0.5 G/ML VIAL IV PRN (14:00)
[2024-10-29 18:39] VITALS: BP 148/74
[2024-10-30 01:25] VITALS: BP 163/66; O2SAT 95
[2024-10-30] MEDS ORDERED: INSULIN NPH HUMAN ISOPHANE 1,000 UNITS/10 ML UNITS SUBCUTANEO SCH (05:00)
[2024-10-30 09:06] VITALS: BP 154/55; O2SAT 95
== END 2024-10-30 14:26 | disposition home or self-care (01) | DRG 392 ==
LOC: ER 14:02 → SEC-K 10-23 00:17 → MEDI 10-23 00:17 → SEC-K 10-23 09:40 → MEDI 10-23 10:12
PROVIDERS: General Practice; Surgery; ADMIT Student in an Organized Health Care Education/Training Program; ATTEND Student in an Organized Health Care Education/Training Program
PROC: BW21ZZZ Computerized Tomography (CT Scan) of Abdomen and Pelvis (ICD-10-PCS; principal; 2024-10-22)
PROC: 02HV33Z Insertion of Infusion Device into Superior Vena Cava, Percutaneous Approach (ICD-10-PCS; 2024-10-24)
PROC: 3E0436Z Introduction of Nutritional Substance into Central Vein, Percutaneous Approach (ICD-10-PCS; 2024-10-24)
PROC: B548ZZA Ultrasonography of Superior Vena Cava, Guidance (ICD-10-PCS; 2024-10-24)
DX: K57.92 Diverticulitis of intestine, part unspecified, without perforation or abscess without bleeding (principal); E27.3 Drug-induced adrenocortical insufficiency; N17.9 Acute kidney failure, unspecified; E11.649 Type 2 diabetes mellitus with hypoglycemia without coma; D64.89 Other specified anemias; J44.9 Chronic obstructive pulmonary disease, unspecified; M06.9 Rheumatoid arthritis, unspecified; I12.9 Hypertensive chronic kidney disease with stage 1 through stage 4 chronic kidney disease, or unspecified chronic kidney disease; N18.9 Chronic kidney disease, unspecified; E03.9 Hypothyroidism, unspecified; E78.5 Hyperlipidemia, unspecified; Z79.52 Long term (current) use of systemic steroids; Z79.84 Long term (current) use of oral hypoglycemic drugs; Z88.6 Allergy status to analgesic agent; Z95.820 Peripheral vascular angioplasty status with implants and grafts

== ENCOUNTER 2024-12-24 07:07 | Outpatient (CLI) | payer OTHER | END 2024-12-24 07:08 | disposition home or self-care (01) | LOC: NUCLEAR 07:07 | PROVIDERS: ATTEND Internal Medicine | DX: I20.9 Angina pectoris, unspecified (principal) ==

== ENCOUNTER 2025-02-08 21:53 | Inpatient (IN) | payer OTHER ==
[~2025-02-08] VITALS: Ht 152.4 cm; Wt 50.8 kg
[~2025-02-08 21:53] MED LIST changes: +AVAPRO300 MG PO; +CARVEDILOL6.25 MG PO; +FUROSEMIDE20 MG PO; +MUCINEX600 MG PO; +NIFEDIPINE ER90 M1 PO; +PEPCID AC20 MG PO; +PREDNISONE10 M2 PO; +XARELTO2.5 MG PO
--- NOTE | 2025-02-08 22:08 | NUR ---
SE RECIBE PACIENTE ALERTA Y CONCIENTE X3. EL MISMO REFIERE TENER DOLOR ABDOMINAL Y ESTAR EVACUANDO DANNI. SE PROCEDE ATOMAR S/V A PACIENTE Y SE UBICA EN AAMIR 6 CON BARANDAS ELEVADAS Y NIVEL MAS BAJO DE LA MISMA.
[2025-02-08] MEDS ORDERED: KETOROLAC TROMETHAMINE 30 MG VIAL IV ONE (22:45)
[2025-02-08] MEDS ORDERED: 0.9 % SODIUM CHLORIDE 1,000 ML IV ONE (22:45)
[2025-02-08] MEDS ORDERED: FAMOtidine 10 MG/ML (4ML VIAL) IV ONE (22:45)
[2025-02-08] MEDS ORDERED: KETOROLAC TROMETHAMINE 30 MG VIAL ONE (22:57)
[2025-02-08] MEDS ORDERED: FAMOTIDINE/PF 20 MG/2 ML VIAL ONE (22:58)
--- NOTE | 2025-02-08 23:07 | NUR ---
PIPPA GUTIERREZ EDUCA ACERCA DE TX ORDENADO Y REFIERE ENTENDER. SE CANALIZA Y COELCTAN MUESTRAS DE LABORATORIO MEDIANTE MEDIDAS ASEPTICAS. SE ADMINISTRAN MEDICAMENTOS SUNDAY ORDEN MEDICA. SE ANTWON ENVASE DE UA Y UC.
[2025-02-08 23:22] LABS: BASO % 0.3 % (0.1-1.2); EOS # 0.01 (0.04-0.54); EOS % 0.1 % (0.7-7.0); LYMPH # 0.36 (1.18-3.74); LYMPH % 2.3 % (19.3-53.1); MONO # 0.25 (0.24-0.82); MONO % 1.6 % (4.7-12.5); NEUT # 14.99 (1.56-6.13); NEUT % 94.7 % (34.0-71.1); RED CELL DISTRIBUTION WIDTH 19.6 % (11.6-14.4)
[2025-02-08 23:35] LABS: MEAN PLATELET VOLUME 10.10 fl (9.4-12.4)
[2025-02-08 23:41] LABS: ALT/SGPT 16.0 U/L (12-78); AST/SGOT 15.0 U/L (15-37); BILIRUBIN TOTAL 0.28 mg/dL (0.3-1.2); BUN CREA RATIO 26.0 (7.0-25.0); CREATININE SERUM 1.39 mg/dL (0.55-1.02); GFR 36.21; GLOBULINA 3.8 G/DL (2.4-3.5); GLUCOSE FASTING 87.0 mg/dL (65-100); OSMOLALITY SERUM 289.0 MOSM/KG (275-295)
[2025-02-09 00:06] LABS: INR 1.09
[2025-02-09] MEDS ORDERED: PIPERACILLIN/TAZOBACTAM SODIUM 2.25 GM VIAL IV SCH (00:08)
[2025-02-09] MEDS ORDERED: INSULIN LISPRO 1,000 UNIT/10 ML UNITS SUBCUTANEO PRN ×2 (00:30→17:45)
[2025-02-09 02:12] LABS: URINE APPEARANCE Cloudy; URINE BILIRRUBIN Negative (NEGATIVE); URINE BLOOD Negative; URINE COLOR Yellow; URINE GLUCOSE Negative (NEGATIVE); URINE KETONE Negative (NEGATIVE); URINE LEUKOCYTE Small; URINE NITRATE Negative; URINE PROTEIN 30 (NEGATIVE); URINE UROBILINOGEN 1.0 E.U./dl
[2025-02-09 02:16] LABS: URINE BACTERIA 219.5 uL (0.0-1933); URINE EPITHELIAL CELLS 95.0 uL (0.0-38.8); URINE RBC 6.3 uL (0.0-20.8); URINE WBC 36.3 uL (0.0-23.2)
[2025-02-09 02:19] LABS: TYPE CELLS SQUAMOUS; URINE CAST 1.17 uL (0.0-1.40)
[2025-02-09] MEDS ORDERED: FAMOTIDINE/PF 20 MG/2 ML VIAL ONE (08:45)
--- NOTE | 2025-02-09 08:54 | NUR ---
PACIENTE ALERTA Y ORIENTADA X3 EN COMPANIA DE FAMILIAR. SE EDUCA SOBRE PROCESO DE ADMINISTRACION DE MEDICAMENTOS, REFIERE ENTENDER. SE EJECUTAN ORDENES BAJO MEDIDAS ASEPTICAS. PACIENTE PENDIENTE A CONSULTA MEDICA.
[2025-02-09] MEDS ORDERED: FAMOTIDINE/PF 20 MG/2 ML VIAL IV SCH (09:00)
--- NOTE | 2025-02-09 09:41 | NUR ---
SE MABLE DXT BAJO MEDIDAS ASEPTICAS A PACIENTE Y SE NOTIFICAN VALORRES AL DR. FERRER.
[2025-02-09] MEDS ORDERED: 0.9 % SODIUM CHLORIDE 1,000 ML IV SCH (17:30)
[2025-02-09] MEDS ORDERED: DEXTROSE 50 % IN WATER 0.5 G/ML DISP.SYRIN IV PRN (17:45)
[2025-02-09] MEDS ORDERED: ACETAMINOPHEN 500 MG GEL..CAP PO PRN (17:45)
[2025-02-09] MEDS ORDERED: ONDANSETRON HCL 4 MG in 0.9 % SODIUM CHLORIDE 50 ML IV PRN (17:45)
[2025-02-09 18:50] VITALS: BP 111/45; O2SAT 100
[2025-02-09 19:24] VITALS: BP 101/56; O2SAT 97
[2025-02-09] MEDS ORDERED: CARVEDILOL 6.25 MG TABLET PO SCH (21:00)
[2025-02-09] MEDS ORDERED: CEFEPIME HCL 1,000 MG in DEXTROSE 5 % IN WATER 50 ML IV SCH (21:00)
[2025-02-10 02:50] VITALS: BP 100/45; O2SAT 98
[2025-02-10 05:30] VITALS: BP 114/55
[2025-02-10] MEDS ORDERED: LEVOTHYROXINE SODIUM 50 MCG TABLET PO SCH (06:00)
[2025-02-10 08:19] VITALS: BP 119/55
[2025-02-10] MEDS ORDERED: PANTOPRAZOLE SODIUM 40 MG/VIAL VIAL IV SCH (09:00)
[2025-02-10] MEDS ORDERED: PREDNISONE 10 MG TABLET PO SCH (09:00)
[2025-02-10 12:31] LABS: ob POSITIVE (NEGATIVE)
[2025-02-10] MEDS ORDERED: FLUCONAZOLE IN NACL,ISO-OSM 200 MG/100 ML PIGGYBAG IV STA (13:26)
[2025-02-10] MEDS ORDERED: LINEZOLID IN DEXTROSE 5% 600 MG/300 ML PIGGYBAG IV STA (13:27)
[2025-02-10] MEDS ORDERED: METRONIDAZOLE/SODIUM CHLORIDE 500 MG/100 ML PIGGYBACK IV STA (13:27)
[2025-02-10 15:54] VITALS: BP 124/54; O2SAT 98
[2025-02-10] MEDS ORDERED: NIFEDIPINE 60 MG TAB.SA.OSM PO SCH (17:00)
[2025-02-10] MEDS ORDERED: METRONIDAZOLE/SODIUM CHLORIDE 500 MG/100 ML PIGGYBACK IV SCH (17:00)
[2025-02-10] MEDS ORDERED: LINEZOLID IN DEXTROSE 5% 600 MG/300 ML PIGGYBAG IV SCH (21:00)
[2025-02-10] MEDS ORDERED: ENOXAPARIN SODIUM 40 MG/0.4 ML SYRINGE SUBCUTANEO SCH (21:00)
[2025-02-11 01:24] VITALS: BP 93/66; O2SAT 98
[2025-02-11 06:52] LABS: BASO % 0.2 % (0.1-1.2); EOS # 0.02 (0.04-0.54); EOS % 0.2 % (0.7-7.0); LYMPH # 1.42 (1.18-3.74); LYMPH % 13.7 % (19.3-53.1); MEAN PLATELET VOLUME 10.50 fl (9.4-12.4); MONO # 1.09 (0.24-0.82); MONO % 10.5 % (4.7-12.5); NEUT # 7.73 (1.56-6.13); NEUT % 74.6 % (34.0-71.1); RED CELL DISTRIBUTION WIDTH 19.5 % (11.6-14.4)
[2025-02-11 07:41] LABS: BUN CREA RATIO 22.0 (7.0-25.0); CREATININE SERUM 0.92 mg/dL (0.55-1.02); GFR 58.3; GLUCOSE FASTING 86.0 mg/dL (65-100); OSMOLALITY SERUM 287.0 MOSM/KG (275-295)
[2025-02-11] MEDS ORDERED: DEXTROSE 5 %-0.45 % SOD CHLORD 1,000 ML IV SCH (08:30)
[2025-02-11 08:58] VITALS: BP 146/67
[2025-02-11] MEDS ORDERED: FLUCONAZOLE IN NACL,ISO-OSM 2 MG/ML ML IV SCH (09:00)
[2025-02-11] MEDS ORDERED: (FF) Daptomycin 50 MG/ML IV STA (09:07)
[2025-02-11 15:23] LABS: BUN CREA RATIO 19.0 (7.0-25.0); CHOL HDL RATIO 11.1 (0-5.0); CREATININE SERUM 1.08 mg/dL (0.55-1.02); GFR 48.45; GLUCOSE FASTING 139.0 mg/dL (65-100); HDL 15.0 mg/dl (40-60); LDL 103.0 mg/dl (0-130); OSMOLALITY SERUM 292.0 MOSM/KG (275-295); VLDL 49.0 (0-39)
[2025-02-11] MEDS ORDERED: AA 4.25%/CAL/LYTES/DEXT 5% 2,000 ML PERIFERAL SCH (17:00)
[2025-02-11] MEDS ORDERED: AA 2.36%/D6.8W/FAT/E-LYTES NO9 1,440 ML IV SCH (17:00)
[2025-02-11] MEDS ORDERED: LEVALBUTEROL HCL 0.63 MG/3 ML SOLUTION IH SCH (17:00)
[2025-02-11] MEDS ORDERED: AA 4.25%/CAL/LYTES/DEXT 5% 1,000 ML PERIFERAL SCH (17:00)
[2025-02-11 17:58] VITALS: BP 150/60
[2025-02-11] MEDS ORDERED: MIDAZOLAM HCL 2 MG/2 ML VIAL IV PUSH ONE (22:30)
[2025-02-11] MEDS ORDERED: fentaNYL CITRATE 50 MCG/ML AMPUL IV PUSH ONE (22:30)
[2025-02-12 02:08] VITALS: BP 111/65; O2SAT 97
[2025-02-12 06:33] LABS: BASO % 0.2 % (0.1-1.2); EOS # 0.02 (0.04-0.54); EOS % 0.2 % (0.7-7.0); LYMPH # 1.37 (1.18-3.74); LYMPH % 14.8 % (19.3-53.1); MEAN PLATELET VOLUME 10.80 fl (9.4-12.4); MONO # 0.80 (0.24-0.82); MONO % 8.6 % (4.7-12.5); NEUT # 6.98 (1.56-6.13); NEUT % 75.2 % (34.0-71.1); RED CELL DISTRIBUTION WIDTH 19.9 % (11.6-14.4)
[2025-02-12 06:58] LABS: BUN CREA RATIO 25.0 (7.0-25.0); CREATININE SERUM 0.93 mg/dL (0.55-1.02); GFR 57.58; GLUCOSE FASTING 127.0 mg/dL (65-100); OSMOLALITY SERUM 288.0 MOSM/KG (275-295)
[2025-02-12] MEDS ORDERED: (FF) Daptomycin 50 MG/ML IV SCH (09:00)
[2025-02-12] MEDS ORDERED: AMPICILLIN SODIUM/SULBACTAM NA 3,000 MG in 0.9 % SODIUM CHLORIDE 100 ML IV SCH (09:00)
[2025-02-12 09:20] VITALS: BP 130/57
[2025-02-12] MEDS ORDERED: LACTOBACILLUS ACIDOPHILUS 1 CAP CAP PO SCH (17:00)
[2025-02-12 17:37] VITALS: BP 116/73
[2025-02-12] MEDS ORDERED: Cyanocobalamin/Mecobalamin 1 TAB.SL SL NR (19:15)
[2025-02-12] MEDS ORDERED: SOD FERRIC GLUC COMPLX/SUCROSE 62.5 MG in 0.9 % SODIUM CHLORIDE 50 ML IV NR (19:15)
[2025-02-12] MEDS ORDERED: MULTIVIT INFUSN,ADULT 4,VIT K 10 ML VIAL IV NR (19:40)
[2025-02-13 03:32] VITALS: BP 137/77; O2SAT 97
[2025-02-13] MEDS ORDERED: SOD FERRIC GLUC COMPLX/SUCROSE 62.5 MG in 0.9 % SODIUM CHLORIDE 50 ML IV SCH (09:00)
[2025-02-13] MEDS ORDERED: Cyanocobalamin/Mecobalamin 1 TAB.SL SL SCH (09:00)
[2025-02-13] MEDS ORDERED: MULTIVIT INFUSN,ADULT 4,VIT K 10 ML VIAL IV SCH (09:00)
[2025-02-13 09:43] VITALS: BP 154/82; O2SAT 97
[2025-02-13 13:55] LABS: BASO % 0.1 % (0.1-1.2); EOS # 0.02 (0.04-0.54); EOS % 0.1 % (0.7-7.0); LYMPH # 0.98 (1.18-3.74); LYMPH % 6.4 % (19.3-53.1); MEAN PLATELET VOLUME 10.40 fl (9.4-12.4); MONO # 0.62 (0.24-0.82); MONO % 4.0 % (4.7-12.5); NEUT # 13.40 (1.56-6.13); NEUT % 87.6 % (34.0-71.1); RED CELL DISTRIBUTION WIDTH 19.4 % (11.6-14.4)
[2025-02-13 20:52] VITALS: BP 135/74; O2SAT 97
[2025-02-13] MEDS ORDERED: ENOXAPARIN SODIUM 40 MG/0.4 ML SYRINGE SUBCUTANEO SCH (21:00)
[2025-02-14 02:36] VITALS: BP 113/54; O2SAT 93
[2025-02-14] MEDS ORDERED: FLUCONAZOLE 100 MG TABLET PO SCH (09:00)
[2025-02-14 09:13] VITALS: BP 142/76; O2SAT 98
[2025-02-14] MEDS ORDERED: MEROPENEM 500 MG/VIAL VIAL IV STA (11:16)
[2025-02-14] MEDS ORDERED: MEROPENEM 500 MG/VIAL VIAL IV SCH (13:00)
[2025-02-14] MEDS ORDERED: INSULIN LISPRO 1,000 UNIT/10 ML UNITS SUBCUTANEO PRN (15:15)
[2025-02-14 17:30] VITALS: BP 163/93
[2025-02-14] MEDS ORDERED: MELATONIN 5 MG TABLET PO SCH (21:00)
[2025-02-14] MEDS ORDERED: FAMOTIDINE/PF 20 MG/2 ML VIAL IV SCH (21:00)
[2025-02-15 01:19] VITALS: BP 128/68; O2SAT 100
[2025-02-15 08:11] LABS: BASO % 0.3 % (0.1-1.2); EOS # 0.02 (0.04-0.54); EOS % 0.2 % (0.7-7.0); LYMPH # 2.28 (1.18-3.74); LYMPH % 18.2 % (19.3-53.1); MEAN PLATELET VOLUME 10.90 fl (9.4-12.4); MONO # 0.82 (0.24-0.82); MONO % 6.5 % (4.7-12.5); NEUT # 9.09 (1.56-6.13); NEUT % 72.4 % (34.0-71.1); RED CELL DISTRIBUTION WIDTH 19.5 % (11.6-14.4)
[2025-02-15 08:27] LABS: ALT/SGPT 21.0 U/L (12-78); AST/SGOT 19.0 U/L (15-37); BILIRUBIN TOTAL 0.31 mg/dL (0.3-1.2); BUN CREA RATIO 13.0 (7.0-25.0); CREATININE SERUM 0.78 mg/dL (0.55-1.02); GFR 70.53; GLOBULINA 2.9 G/DL (2.4-3.5); GLUCOSE FASTING 110.0 mg/dL (65-100); LDH 255.0 U/L (84-246); OSMOLALITY SERUM 281.0 MOSM/KG (275-295)
[2025-02-15 08:41] VITALS: BP 144/66; O2SAT 97
[2025-02-15 21:27] VITALS: BP 132/85
[2025-02-16 01:57] VITALS: BP 136/67; O2SAT 96
[2025-02-16 07:52] LABS: BASO % 0.2 % (0.1-1.2); EOS # 0.06 (0.04-0.54); EOS % 0.6 % (0.7-7.0); LYMPH # 2.32 (1.18-3.74); LYMPH % 24.1 % (19.3-53.1); MEAN PLATELET VOLUME 10.40 fl (9.4-12.4); MONO # 0.95 (0.24-0.82); MONO % 9.9 % (4.7-12.5); NEUT # 5.82 (1.56-6.13); NEUT % 60.4 % (34.0-71.1); RED CELL DISTRIBUTION WIDTH 20.2 % (11.6-14.4)
[2025-02-16 09:12] LABS: BAND MAN 2.0 %; LYMPHOCYTE MAN 22.0 %; METAMYELOCYTE 2.0 %; MONOCYTE MAN 4.0 %; NEUTROPHILS MAN 70.0 %
[2025-02-16 09:14] VITALS: BP 144/73; O2SAT 96
[2025-02-16] MEDS ORDERED: AMPICILLIN SODIUM/SULBACTAM NA 3,000 MG VIAL IV STA (11:19)
[2025-02-16] MEDS ORDERED: SODIUM CHLORIDE FOR INHALATION 1 VIAL.NEB IH SCH (14:37)
[2025-02-16] MEDS ORDERED: AMPICILLIN SODIUM/SULBACTAM NA 3,000 MG VIAL IV SCH (18:00)
[2025-02-17 03:30] VITALS: BP 133/75; O2SAT 98
[2025-02-17 06:43] LABS: BASO % 0.4 % (0.1-1.2); EOS # 0.03 (0.04-0.54); EOS % 0.3 % (0.7-7.0); LYMPH # 2.05 (1.18-3.74); LYMPH % 21.5 % (19.3-53.1); MEAN PLATELET VOLUME 10.50 fl (9.4-12.4); MONO # 0.84 (0.24-0.82); MONO % 8.8 % (4.7-12.5); NEUT # 6.35 (1.56-6.13); NEUT % 66.5 % (34.0-71.1); RED CELL DISTRIBUTION WIDTH 21.1 % (11.6-14.4)
[2025-02-17 07:06] LABS: BUN CREA RATIO 18.0 (7.0-25.0); CREATININE SERUM 0.72 mg/dL (0.55-1.02); GFR 77.36; GLUCOSE FASTING 92.0 mg/dL (65-100); OSMOLALITY SERUM 277.0 MOSM/KG (275-295)
[2025-02-17 08:21] VITALS: BP 145/74
[2025-02-17 16:15] VITALS: BP 145/79; O2SAT 97
[2025-02-17] MEDS ORDERED: SOD FERRIC GLUC COMPLX/SUCROSE 62.5 MG in 0.9 % SODIUM CHLORIDE 50 ML IV SCH (17:00)
[2025-02-18 01:49] VITALS: BP 122/69; O2SAT 97
[2025-02-18] MEDS ORDERED: DIPHENHYDRAMINE HCL 50 MG/ML VIAL 1ML IV NR (07:00)
[2025-02-18] MEDS ORDERED: METHYLPREDNISOLONE SOD SUCC 40 MG VIAL IV NR (07:00)
[2025-02-18] MEDS ORDERED: DIATRIZOATE MEGLUMINE, SODIUM 30 ML BOTTLE PO NR (08:50)
[2025-02-18] MEDS ORDERED: PANTOPRAZOLE SODIUM 40 MG TABLET.DR PO SCH (09:00)
[2025-02-18 09:35] VITALS: BP 144/73; O2SAT 96
[2025-02-18] MEDS ORDERED: MULTIVIT INFUSN,ADULT 4,VIT K 10 ML VIAL IV SCH (12:00)
[2025-02-18 17:04] VITALS: BP 136/76; O2SAT 97
[2025-02-19 00:50] VITALS: BP 123/72; O2SAT 96
[2025-02-19 08:00] VITALS: BP 157/65; O2SAT 97
[2025-02-19 18:29] VITALS: BP 147/78
[2025-02-20 02:22] VITALS: BP 152/76; O2SAT 98
[2025-02-20 08:55] VITALS: BP 157/78; O2SAT 99
[2025-02-20] MEDS ORDERED: FLUCONAZOLE 200 MG TABLET PO SCH (11:00)
[2025-02-20 16:11] LABS: BASO % 0.3 % (0.1-1.2); EOS # 0.05 (0.04-0.54); EOS % 0.6 % (0.7-7.0); LYMPH # 1.79 (1.18-3.74); LYMPH % 20.1 % (19.3-53.1); MEAN PLATELET VOLUME 10.00 fl (9.4-12.4); MONO # 0.88 (0.24-0.82); MONO % 9.9 % (4.7-12.5); NEUT # 5.98 (1.56-6.13); NEUT % 67.1 % (34.0-71.1); RED CELL DISTRIBUTION WIDTH 23.6 % (11.6-14.4)
[2025-02-20 17:16] LABS: ALT/SGPT 24.0 U/L (12-78); AST/SGOT 27.0 U/L (15-37); BILIRUBIN TOTAL 0.3 mg/dL (0.3-1.2); BUN CREA RATIO 15.0 (7.0-25.0); CREATININE SERUM 0.75 mg/dL (0.55-1.02); GFR 73.8; GLOBULINA 3.2 G/DL (2.4-3.5); GLUCOSE FASTING 102.0 mg/dL (65-100); OSMOLALITY SERUM 281.0 MOSM/KG (275-295)
[2025-02-20 19:13] VITALS: BP 164/84; O2SAT 99
[2025-02-20] MEDS ORDERED: POTASSIUM PHOS,M-BASIC-D-BASIC 15 MM in 0.9 % SODIUM CHLORIDE 250 ML IV ONE (20:00)
[2025-02-21 00:48] VITALS: BP 142/77; O2SAT 97
[2025-02-21 09:03] VITALS: BP 160/69; O2SAT 97
[2025-02-21 18:16] VITALS: BP 161/70
[2025-02-21] MEDS ORDERED: PATIENTS OWN MEDICATION (MEDICAMENTO EN PISO) PO SCH (21:00)
[2025-02-22 01:34] VITALS: BP 146/63; O2SAT 96
[2025-02-22 08:51] VITALS: BP 137/70; O2SAT 98
[2025-02-22 20:24] VITALS: BP 169/65
[2025-02-23 02:30] VITALS: BP 130/54; O2SAT 97
[2025-02-23 08:33] VITALS: BP 139/63; O2SAT 98
[2025-02-23 16:00] VITALS: BP 147/73; O2SAT 96
[2025-02-24 03:17] VITALS: BP 140/51; O2SAT 95
[2025-02-24 08:16] VITALS: BP 147/62; O2SAT 98
[2025-02-24 16:56] VITALS: BP 150/64; O2SAT 95
[2025-02-24] MEDS ORDERED: CEFEPIME HCL 2,000 MG in 0.9 % SODIUM CHLORIDE 100 ML IV SCH (21:00)
[2025-02-25 03:04] VITALS: BP 136/75; O2SAT 97
[2025-02-25 09:34] VITALS: BP 166/78; O2SAT 99
[2025-02-25 17:32] VITALS: BP 155/70; O2SAT 97
[2025-02-26 01:15] VITALS: BP 128/64; O2SAT 97
[2025-02-26 08:34] VITALS: BP 130/80; O2SAT 97
[2025-02-26] MEDS ORDERED: SYNTHROID50 MCG PO (13:55)
[2025-02-26] MEDS ORDERED: NIFEDIPINE ER90 M1 PO (13:55)
[2025-02-26] MEDS ORDERED: AVAPRO300 MG PO (13:55)
[2025-02-26] MEDS ORDERED: FLUCONAZOLE100 MG PO (13:55)
[2025-02-26] MEDS ORDERED: FUSION PLUS CA1 EACH PO (13:55)
[2025-02-26] MEDS ORDERED: FAMOTIDINE20 MG PO (13:55)
[2025-02-26] MEDS ORDERED: INTESTINEX680 M1 PO (13:55)
[2025-02-26] MEDS ORDERED: ABANEU-SL TABL1 EACH SL (13:55)
[2025-02-26] MEDS ORDERED: PANTOPRAZOLE SO40 MG PO (13:55)
[2025-02-26] MEDS ORDERED: FUROSEMIDE20 MG PO (13:55)
[2025-02-26] MEDS ORDERED: XARELTO2.5 MG PO (13:55)
[2025-02-26] MEDS ORDERED: PREDNISONE10 M2 PO (13:55)
[2025-02-26] MEDS ORDERED: GLIPIZIDE ER2.5 MG PO (13:55)
[2025-02-26] MEDS ORDERED: CARVEDILOL6.25 MG PO (13:55)
[2025-02-26] MEDS ORDERED: PROTONIX40 MG PO (14:45)
[2025-02-26] MEDS ORDERED: FLUCONAZOLE200 MG PO (14:45)
[2025-02-26 18:09] VITALS: BP 158/75; O2SAT 96
== END 2025-02-26 19:11 | disposition home or self-care (01) | DRG 682 ==
LOC: ER 21:53 → MEDJ 02-09 17:58 → MEDI 02-09 17:58
PROVIDERS: General Practice; Internal Medicine; Internal Medicine Hematology & Oncology; Internal Medicine Infectious Disease; Surgery; ADMIT Internal Medicine Geriatric Medicine; ATTEND Internal Medicine Geriatric Medicine
PROC: BW21ZZZ Computerized Tomography (CT Scan) of Abdomen and Pelvis (ICD-10-PCS; 2025-02-08)
PROC: 0H97XZZ Drainage of Abdomen Skin, External Approach (ICD-10-PCS; principal; 2025-02-11)
PROC: B24BYZZ Ultrasonography of Heart with Aorta using Other Contrast (ICD-10-PCS; 2025-02-11)
PROC: B54NZZZ Ultrasonography of Left Upper Extremity Veins (ICD-10-PCS; 2025-02-12)
PROC: 02HV33Z Insertion of Infusion Device into Superior Vena Cava, Percutaneous Approach (ICD-10-PCS; 2025-02-13)
PROC: B54MZZZ Ultrasonography of Right Upper Extremity Veins (ICD-10-PCS; 2025-02-16)
PROC: BW21YZZ Computerized Tomography (CT Scan) of Abdomen and Pelvis using Other Contrast (ICD-10-PCS; 2025-02-18)
DX: N17.9 Acute kidney failure, unspecified (principal); A41.9 Sepsis, unspecified organism; K68.12 Psoas muscle abscess; E27.40 Unspecified adrenocortical insufficiency; E87.20 Acidosis, unspecified; N39.0 Urinary tract infection, site not specified; K57.92 Diverticulitis of intestine, part unspecified, without perforation or abscess without bleeding; K62.5 Hemorrhage of anus and rectum; D64.9 Anemia, unspecified; D69.6 Thrombocytopenia, unspecified; E11.9 Type 2 diabetes mellitus without complications; Z79.4 Long term (current) use of insulin; I10 Essential (primary) hypertension; J44.9 Chronic obstructive pulmonary disease, unspecified; E03.9 Hypothyroidism, unspecified; A49.01 Methicillin susceptible Staphylococcus aureus infection, unspecified site; K60.40 Rectal fistula, unspecified

== ENCOUNTER 2025-03-11 09:42 | Inpatient (IN) | payer OTHER ==
[~2025-03-11] VITALS: Ht 152.4 cm; Wt 508.0 kg
[~2025-03-11 09:42] MED LIST changes: +FAMOTIDINE20 MG PO; +FLUCONAZOLE100 MG PO; +FLUCONAZOLE200 MG PO; +FUSION PLUS CA1 EACH PO; +PANTOPRAZOLE SO40 MG PO; +PROTONIX40 MG PO
--- NOTE | 2025-03-11 10:44 | NUR ---
SE RECIBE PTE FEMINA ALERTA ACOMPANADA POR FAMILIAR, AL MOMENTO REFIERE LORETTA TENIDO GABBY INTERVENCION QUIRURGICA CON MEDICO DE HOSPITAL, SE LE COLOCARON 2 DRENAJES, PTE CON PICC LINE R+. AL MOMENTO SE LE PEG SIGNOS VITALES, SE COLOCA PTE EN CAM 9. PTE AL MOMENTO CON MEDICO.
[2025-03-11] MEDS ORDERED: 0.9 % SODIUM CHLORIDE 1,000 ML IV SCH (11:00)
[2025-03-11 12:02] LABS: BASO % 0.2 % (0.1-1.2); EOS # 0.02 (0.04-0.54); EOS % 0.1 % (0.7-7.0); LYMPH # 1.30 (1.18-3.74); LYMPH % 4.8 % (19.3-53.1); MEAN PLATELET VOLUME 9.60 fl (9.4-12.4); MONO # 2.34 (0.24-0.82); MONO % 8.7 % (4.7-12.5); NEUT # 22.95 (1.56-6.13); NEUT % 84.9 % (34.0-71.1); RED CELL DISTRIBUTION WIDTH 23.3 % (11.6-14.4)
[2025-03-11 12:04] LABS: ERYTHROCYTE SEDIMENTATION RATE 113 mm/hr (0-30)
[2025-03-11 12:22] LABS: INR 1.1
--- NOTE | 2025-03-11 12:34 | NUR ---
PACIENTE ALERTA Y ORIENTADA X3. SE EDUCA SOBRE PROCESO DE MALBE DE MUESTRAS, REFIERE ENTENDER. SE EJECUTAN ORDENES BAJO MEDIDAS ASEPTICAS.
[2025-03-11] MEDS ORDERED: BARIUM SULFATE 450 ML ORAL.SUSP PO ONE (12:39)
[2025-03-11 12:47] LABS: ALT/SGPT 16.0 U/L (12-78); AST/SGOT 14.0 U/L (15-37); BILIRUBIN TOTAL 0.43 mg/dL (0.3-1.2); BUN CREA RATIO 19.0 (7.0-25.0); CREATININE SERUM 1.0 mg/dL (0.55-1.02); GFR 52.95; GLOBULINA 4.4 G/DL (2.4-3.5); GLUCOSE FASTING 99.0 mg/dL (65-100); OSMOLALITY SERUM 278.0 MOSM/KG (275-295)
[2025-03-11] MEDS ORDERED: METHYLPREDNISOLONE SOD SUCC 40 MG VIAL IV ONE (13:00)
[2025-03-11] MEDS ORDERED: DEXTROSE 5 % AND 0.9 % NACL 1,000 ML IV SCH (13:00)
[2025-03-11] MEDS ORDERED: DIPHENHYDRAMINE HCL 50 MG/ML VIAL 1ML IV ONE (13:00)
[2025-03-11] MEDS ORDERED: LEVALBUTEROL HCL 0.63 MG/3 ML SOLUTION IH SCH (13:02)
[2025-03-11 13:06] LABS: URINE APPEARANCE Cloudy; URINE BILIRRUBIN Negative (NEGATIVE); URINE BLOOD Trace; URINE COLOR Yellow; URINE GLUCOSE Negative (NEGATIVE); URINE KETONE Trace (NEGATIVE); URINE LEUKOCYTE Negative; URINE NITRATE Negative; URINE UROBILINOGEN 0.2 E.U./dl
[2025-03-11 13:07] LABS: URINE BACTERIA 14.3 uL (0.0-1933); URINE CAST 3.51 uL (0.0-1.40); URINE EPITHELIAL CELLS 47.6 uL (0.0-38.8); URINE WBC 9.2 uL (0.0-23.2)
[2025-03-11] MEDS ORDERED: CEFEPIME HCL 2,000 MG in DEXTROSE 5 % IN WATER 100 ML IV SCH (13:10)
[2025-03-11] MEDS ORDERED: FLUCONAZOLE IN NACL,ISO-OSM 100 ML IV SCH (13:11)
[2025-03-11 13:21] LABS: URINE PROTEIN 100 (NEGATIVE); URINE RBC 1.9 uL (0.0-20.8)
[2025-03-11] MEDS ORDERED: ONDANSETRON HCL 2 MG/ML VIAL IV PRN (13:30)
[2025-03-11] MEDS ORDERED: GABAPENTIN 300 MG CAPSULE PO PRN (13:30)
[2025-03-11] MEDS ORDERED: ACETAMINOPHEN 500 MG GEL..CAP PO PRN (13:30)
[2025-03-11] MEDS ORDERED: LEVALBUTEROL HCL 0.63 MG/3 ML SOLUTION IH ONE (15:40)
[2025-03-11] MEDS ORDERED: ENOXAPARIN SODIUM 40 MG/0.4 ML SYRINGE SUBCUTANEO SCH (17:00)
[2025-03-11] MEDS ORDERED: LACTOBACILLUS ACIDOPHILUS 1 CAP CAP PO SCH (17:00)
[2025-03-11 19:01] VITALS: BP 103/73
[2025-03-11] MEDS ORDERED: FAMOTIDINE/PF 20 MG/2 ML VIAL IV SCH (21:00)
[2025-03-11] MEDS ORDERED: CARVEDILOL 6.25 MG TABLET PO SCH (21:00)
[2025-03-11] MEDS ORDERED: NIFEDIPINE 60 MG TAB.SA.OSM PO SCH (21:00)
[2025-03-11] MEDS ORDERED: METHYLPREDNISOLONE SOD SUCC 40 MG VIAL IV SCH (21:00)
[2025-03-11 22:36] VITALS: BP 131/59
[2025-03-12 03:16] VITALS: BP 104/65; O2SAT 98
[2025-03-12] MEDS ORDERED: LEVOTHYROXINE SODIUM 50 MCG TABLET PO SCH (06:00)
[2025-03-12] MEDS ORDERED: PANTOPRAZOLE SODIUM 40 MG/VIAL VIAL IV SCH (06:00)
[2025-03-12 06:24] LABS: BASO % 0.3 % (0.1-1.2); EOS # 0.04 (0.04-0.54); EOS % 0.2 % (0.7-7.0); LYMPH # 0.78 (1.18-3.74); LYMPH % 4.0 % (19.3-53.1); MEAN PLATELET VOLUME 10.30 fl (9.4-12.4); MONO # 0.20 (0.24-0.82); MONO % 1.0 % (4.7-12.5); NEUT # 18.22 (1.56-6.13); NEUT % 93.8 % (34.0-71.1); RED CELL DISTRIBUTION WIDTH 23.0 % (11.6-14.4)
[2025-03-12 06:54] LABS: TSH 0.815 uIU/mL (0.358-3.74)
[2025-03-12 09:09] VITALS: BP 108/56; O2SAT 97
[2025-03-12] MEDS ORDERED: MEROPENEM 500 MG/VIAL VIAL IV STA (10:38)
[2025-03-12] MEDS ORDERED: LINEZOLID IN DEXTROSE 5% 600 MG/300 ML PIGGYBAG IV STA (10:39)
[2025-03-12] MEDS ORDERED: MULTIVIT INFUSN,ADULT 4,VIT K 10 ML in DEXTROSE 5 % IN WATER 500 ML IV SCH (13:54)
[2025-03-12] MEDS ORDERED: MULTIVIT INFUSN,ADULT 4,VIT K 10 ML VIAL IV SCH (17:00)
[2025-03-12] MEDS ORDERED: THIAMINE HCL 100 MG/ML 2 ML VIAL IV SCH (17:00)
[2025-03-12] MEDS ORDERED: DEXTROSE 50 % IN WATER 0.5 G/ML DISP.SYRIN IV PRN (17:45)
[2025-03-12] MEDS ORDERED: INSULIN LISPRO 1,000 UNIT/10 ML UNITS SUBCUTANEO PRN (17:45)
[2025-03-12] MEDS ORDERED: MEROPENEM 500 MG/VIAL VIAL IV SCH (18:00)
[2025-03-12 19:36] VITALS: BP 125/60; O2SAT 97
[2025-03-12] MEDS ORDERED: LINEZOLID IN DEXTROSE 5% 600 MG/300 ML PIGGYBAG IV SCH (21:00)
[2025-03-13 01:31] VITALS: BP 130/69; O2SAT 97
[2025-03-13 06:25] LABS: BASO % 0.1 % (0.1-1.2); EOS # 0.00 (0.04-0.54); EOS % 0.0 % (0.7-7.0); LYMPH # 0.75 (1.18-3.74); LYMPH % 4.6 % (19.3-53.1); MEAN PLATELET VOLUME 10.20 fl (9.4-12.4); MONO # 0.49 (0.24-0.82); MONO % 3.0 % (4.7-12.5); NEUT # 14.75 (1.56-6.13); NEUT % 91.2 % (34.0-71.1); RED CELL DISTRIBUTION WIDTH 22.5 % (11.6-14.4)
[2025-03-13 06:59] LABS: BUN CREA RATIO 21.0 (7.0-25.0); CREATININE SERUM 0.81 mg/dL (0.55-1.02); GFR 67.53; GLUCOSE FASTING 170.0 mg/dL (65-100); OSMOLALITY SERUM 292.0 MOSM/KG (275-295)
[2025-03-13 09:33] VITALS: BP 147/60; O2SAT 99
[2025-03-13] MEDS ORDERED: PREDNISONE 10 MG TABLET PO STA (13:08)
[2025-03-13] MEDS ORDERED: SODIUM CHLORIDE 0.45 % 1,000 ML IV SCH (13:15)
[2025-03-13 17:07] VITALS: BP 132/52; O2SAT 97
[2025-03-13] MEDS ORDERED: POLYETHYLENE GLYCOL 3350 17 GM BLIST.PACK PO SCH (21:00)
[2025-03-14 02:51] VITALS: BP 118/70; O2SAT 97
[2025-03-14] MEDS ORDERED: PREDNISONE 10 MG TABLET PO SCH (09:00)
[2025-03-14 09:14] VITALS: BP 147/60; O2SAT 95
[2025-03-14 20:01] VITALS: BP 135/60; O2SAT 97
[2025-03-14] MEDS ORDERED: LINEZOLID 600 MG TABLET PO SCH (21:00)
[2025-03-15 03:18] VITALS: BP 136/60; O2SAT 97
[2025-03-15] MEDS ORDERED: PANTOPRAZOLE SODIUM 40 MG TABLET.DR PO SCH (06:00)
[2025-03-15 06:47] LABS: BASO % 0.6 % (0.1-1.2); EOS # 0.04 (0.04-0.54); EOS % 0.6 % (0.7-7.0); LYMPH # 1.59 (1.18-3.74); LYMPH % 22.6 % (19.3-53.1); MEAN PLATELET VOLUME 9.80 fl (9.4-12.4); MONO # 0.90 (0.24-0.82); NEUT # 4.11 (1.56-6.13); NEUT % 58.2 % (34.0-71.1); RED CELL DISTRIBUTION WIDTH 22.5 % (11.6-14.4)
[2025-03-15 08:26] LABS: BAND MAN 3.0 %; LYMPHOCYTE MAN 20.0 %; MONO % 12.8 % (4.7-12.5); MONOCYTE MAN 9.0 %; NEUTROPHILS MAN 55.0 %
[2025-03-15 08:27] LABS: METAMYELOCYTE 11.0 %; MYELOCYTE 2.0 %
[2025-03-15 08:39] VITALS: BP 150/72; O2SAT 96
[2025-03-15] MEDS ORDERED: FLUCONAZOLE 200 MG TABLET PO SCH (09:00)
[2025-03-15 09:39] LABS: BUN CREA RATIO 25.0 (7.0-25.0); CREATININE SERUM 0.91 mg/dL (0.55-1.02); GFR 59.04; GLUCOSE FASTING 75.0 mg/dL (65-100); OSMOLALITY SERUM 291.0 MOSM/KG (275-295)
[2025-03-15] MEDS ORDERED: POTASSIUM PHOS,M-BASIC-D-BASIC 15 MM in 0.9 % SODIUM CHLORIDE 250 ML IV NR (13:00)
[2025-03-15 19:33] VITALS: BP 137/67
[2025-03-16 01:00] VITALS: BP 132/68; O2SAT 99
[2025-03-16 09:55] VITALS: BP 153/72; O2SAT 98
[2025-03-16 17:00] VITALS: BP 145/68; O2SAT 97
[2025-03-17 01:55] VITALS: BP 143/69; O2SAT 98
[2025-03-17] MEDS ORDERED: METHYLPREDNISOLONE SOD SUCC 40 MG VIAL IV NR (06:00)
[2025-03-17] MEDS ORDERED: DIPHENHYDRAMINE HCL 50 MG/ML VIAL 1ML IV NR (06:00)
[2025-03-17] MEDS ORDERED: DIATRIZOATE MEGLUMINE, SODIUM 30 ML BOTTLE PO ONE (07:45)
[2025-03-17] MEDS ORDERED: VANCOMYCIN HCL 125 MG CAPSULE PO SCH (09:00)
[2025-03-17 09:36] VITALS: BP 179/82; O2SAT 98
[2025-03-17 17:10] VITALS: BP 176/75
[2025-03-18 01:41] VITALS: BP 120/69; O2SAT 97
[2025-03-18 06:24] LABS: BASO % 0.2 % (0.1-1.2); EOS # 0.01 (0.04-0.54); EOS % 0.2 % (0.7-7.0); LYMPH # 1.26 (1.18-3.74); LYMPH % 26.3 % (19.3-53.1); MEAN PLATELET VOLUME 9.50 fl (9.4-12.4); MONO # 0.69 (0.24-0.82); NEUT # 2.62 (1.56-6.13); NEUT % 54.7 % (34.0-71.1); RED CELL DISTRIBUTION WIDTH 22.3 % (11.6-14.4)
[2025-03-18 07:03] LABS: ERYTHROCYTE SEDIMENTATION RATE 42 mm/hr (0-30)
[2025-03-18 07:12] LABS: BUN CREA RATIO 18.0 (7.0-25.0); CREATININE SERUM 0.88 mg/dL (0.55-1.02); GFR 61.37; GLUCOSE FASTING 150.0 mg/dL (65-100); OSMOLALITY SERUM 287.0 MOSM/KG (275-295)
[2025-03-18 07:29] LABS: BAND MAN 3.0 %; LYMPHOCYTE MAN 30.0 %; METAMYELOCYTE 1.0 %; MONO % 14.4 % (4.7-12.5); MONOCYTE MAN 7.0 %; NEUTROPHILS MAN 59.0 %
[2025-03-18 09:43] VITALS: BP 172/65; O2SAT 97
[2025-03-18 21:05] VITALS: BP 160/61; O2SAT 98
[2025-03-19 03:01] VITALS: BP 159/62; O2SAT 99
[2025-03-19] MEDS ORDERED: INSULIN LISPRO 1,000 UNIT/10 ML UNITS SUBCUTANEO PRN (08:15)
[2025-03-19 10:26] VITALS: BP 129/67; O2SAT 98
[2025-03-19 18:00] VITALS: BP 155/78; O2SAT 96
[2025-03-20 02:40] VITALS: BP 165/70; O2SAT 98
[2025-03-20 11:01] VITALS: BP 153/74; O2SAT 97
[2025-03-20 17:29] VITALS: BP 165/72
[2025-03-20] MEDS ORDERED: NIFEDIPINE 60 MG TAB.SA.OSM PO SCH (21:00)
[2025-03-21 02:10] VITALS: BP 162/70; O2SAT 98
[2025-03-21] MEDS ORDERED: Cyanocobalamin/Mecobalamin 1 TAB.SL SL SCH (09:00)
[2025-03-21] MEDS ORDERED: SOD FERRIC GLUC COMPLX/SUCROSE 62.5 MG in 0.9 % SODIUM CHLORIDE 50 ML IV SCH (09:00)
[2025-03-21 13:01] VITALS: BP 150/72; O2SAT 99
[2025-03-21 19:41] VITALS: BP 160/72; O2SAT 96
[2025-03-22 02:59] VITALS: BP 136/70; O2SAT 97
[2025-03-22 07:47] LABS: BASO % 0.1 % (0.1-1.2); EOS # 0.04 (0.04-0.54); EOS % 0.3 % (0.7-7.0); LYMPH # 1.91 (1.18-3.74); LYMPH % 14.6 % (19.3-53.1); MEAN PLATELET VOLUME 9.10 fl (9.4-12.4); MONO # 1.08 (0.24-0.82); MONO % 8.2 % (4.7-12.5); NEUT # 9.96 (1.56-6.13); NEUT % 75.9 % (34.0-71.1); RED CELL DISTRIBUTION WIDTH 21.7 % (11.6-14.4)
[2025-03-22 08:03] LABS: BUN CREA RATIO 23.0 (7.0-25.0); CREATININE SERUM 0.62 mg/dL (0.55-1.02); GFR 91.93; GLUCOSE FASTING 76.0 mg/dL (65-100); OSMOLALITY SERUM 280.0 MOSM/KG (275-295)
[2025-03-22] MEDS ORDERED: THIAMINE HCL 100 MG TABLET PO SCH (09:00)
[2025-03-22] MEDS ORDERED: ENOXAPARIN SODIUM 40 MG/0.4 ML SYRINGE SUBCUTANEO SCH (09:00)
[2025-03-22 09:24] VITALS: BP 150/70; O2SAT 97
[2025-03-22] MEDS ORDERED: KETOROLAC TROMETHAMINE 10 MG TABLET PO PRN (14:15)
[2025-03-22] MEDS ORDERED: POTASSIUM PHOS,M-BASIC-D-BASIC 15 MM in 0.9 % SODIUM CHLORIDE 250 ML IV ONE (17:30)
[2025-03-22 17:46] VITALS: BP 132/74; O2SAT 98
[2025-03-22] MEDS ORDERED: ENOXAPARIN SODIUM 60 MG/0.6 ML SYRINGE SUBCUTANEO SCH (21:00)
[2025-03-23 01:30] VITALS: BP 177/71; O2SAT 97
[2025-03-23 09:15] VITALS: BP 144/63; O2SAT 98
[2025-03-23] MEDS ORDERED: FLUCONAZOLE IN NACL,ISO-OSM 50 ML IV SCH (11:51)
[2025-03-23] MEDS ORDERED: DIPHENHYDRAMINE HCL 50 MG/ML VIAL 1ML IV NR (12:00)
[2025-03-23] MEDS ORDERED: METHYLPREDNISOLONE SOD SUCC 125 MG/VIAL IV NR (12:00)
[2025-03-23] MEDS ORDERED: METHYLPREDNISOLONE SOD SUCC 125 MG VIAL IV NR (12:00)
[2025-03-23] MEDS ORDERED: FLUCONAZOLE IN NACL,ISO-OSM 2 MG/ML ML IV SCH (17:00)
[2025-03-23 18:52] VITALS: BP 152/64; O2SAT 98
[2025-03-24 03:51] VITALS: BP 163/67; O2SAT 97
[2025-03-24 06:17] LABS: BASO % 0.1 % (0.1-1.2); EOS # 0.00 (0.04-0.54); EOS % 0.0 % (0.7-7.0); LYMPH # 1.16 (1.18-3.74); LYMPH % 11.4 % (19.3-53.1); MEAN PLATELET VOLUME 9.60 fl (9.4-12.4); MONO # 0.60 (0.24-0.82); MONO % 5.9 % (4.7-12.5); NEUT # 8.28 (1.56-6.13); NEUT % 81.3 % (34.0-71.1); RED CELL DISTRIBUTION WIDTH 21.8 % (11.6-14.4)
[2025-03-24 06:46] LABS: ALT/SGPT 16.0 U/L (12-78); AST/SGOT 10.0 U/L (15-37); BILIRUBIN TOTAL 0.27 mg/dL (0.3-1.2); BUN CREA RATIO 19.0 (7.0-25.0); CREATININE SERUM 0.8 mg/dL (0.55-1.02); GFR 68.5; GLOBULINA 2.7 G/DL (2.4-3.5); GLUCOSE FASTING 139.0 mg/dL (65-100); OSMOLALITY SERUM 284.0 MOSM/KG (275-295)
[2025-03-24 10:10] VITALS: BP 147/69; O2SAT 98
[2025-03-24] MEDS ORDERED: CEFTAZIDIME/AVIBACTAM 1.25GM/100ML NSS PB IV SCH (13:00)
[2025-03-24 17:56] VITALS: BP 172/71; O2SAT 96
[2025-03-25 03:45] VITALS: BP 160/66; O2SAT 98
[2025-03-25] MEDS ORDERED: ENOXAPARIN SODIUM 40 MG/0.4 ML SYRINGE SUBCUTANEO SCH (09:00)
[2025-03-25 09:50] VITALS: BP 137/65; O2SAT 98
[2025-03-25 15:25] LABS: BASO % 0.1 % (0.1-1.2); EOS # 0.00 (0.04-0.54); EOS % 0.0 % (0.7-7.0); LYMPH # 0.70 (1.18-3.74); LYMPH % 9.1 % (19.3-53.1); MEAN PLATELET VOLUME 9.50 fl (9.4-12.4); MONO # 0.62 (0.24-0.82); MONO % 8.0 % (4.7-12.5); NEUT # 6.31 (1.56-6.13); NEUT % 81.9 % (34.0-71.1); RED CELL DISTRIBUTION WIDTH 22.4 % (11.6-14.4)
[2025-03-25 17:45] VITALS: BP 179/50
[2025-03-26 03:14] VITALS: BP 161/71; O2SAT 98
[2025-03-26 08:41] VITALS: BP 140/64; O2SAT 96
[2025-03-26 14:17] LABS: BASO % 0.2 % (0.1-1.2); EOS # 0.03 (0.04-0.54); EOS % 0.2 % (0.7-7.0); LYMPH # 1.24 (1.18-3.74); LYMPH % 9.4 % (19.3-53.1); MEAN PLATELET VOLUME 9.00 fl (9.4-12.4); MONO # 1.65 (0.24-0.82); NEUT # 10.12 (1.56-6.13); NEUT % 76.3 % (34.0-71.1); RED CELL DISTRIBUTION WIDTH 22.6 % (11.6-14.4)
[2025-03-26 14:46] LABS: MONO % 12.4 % (4.7-12.5)
[2025-03-26 18:55] VITALS: BP 150/67; O2SAT 96
[2025-03-27 01:18] VITALS: BP 143/66; O2SAT 99
[2025-03-27 09:07] VITALS: BP 140/66; O2SAT 98
[2025-03-27 18:02] VITALS: BP 155/76; O2SAT 97
[2025-03-28 01:15] VITALS: BP 154/71; O2SAT 99
[2025-03-28 09:28] VITALS: BP 144/67; O2SAT 97
[2025-03-28] MEDS ORDERED: AMPICILLIN SODIUM/SULBACTAM NA 3,000 MG VIAL IV STA (12:07)
[2025-03-28 17:53] VITALS: BP 159/62
[2025-03-28] MEDS ORDERED: AMPICILLIN SODIUM/SULBACTAM NA 3,000 MG VIAL IV SCH (21:00)
[2025-03-29 03:27] VITALS: BP 159/66; O2SAT 98
[2025-03-29 08:59] VITALS: BP 129/72; O2SAT 99
[2025-03-29 18:26] VITALS: BP 146/66; O2SAT 0
[2025-03-30 02:45] VITALS: BP 153/64; O2SAT 97
[2025-03-30 07:58] LABS: BASO % 0.2 % (0.1-1.2); EOS # 0.06 (0.04-0.54); EOS % 0.6 % (0.7-7.0); LYMPH # 1.90 (1.18-3.74); LYMPH % 18.1 % (19.3-53.1); MEAN PLATELET VOLUME 9.90 fl (9.4-12.4); MONO # 1.04 (0.24-0.82); MONO % 9.9 % (4.7-12.5); NEUT # 7.33 (1.56-6.13); NEUT % 70.0 % (34.0-71.1); RED CELL DISTRIBUTION WIDTH 25.0 % (11.6-14.4)
[2025-03-30 08:28] LABS: ALT/SGPT 17.0 U/L (12-78); AST/SGOT 11.0 U/L (15-37); BILIRUBIN TOTAL 0.33 mg/dL (0.3-1.2); BUN CREA RATIO 17.0 (7.0-25.0); CREATININE SERUM 0.7 mg/dL (0.55-1.02); GFR 79.91; GLOBULINA 2.8 G/DL (2.4-3.5); GLUCOSE FASTING 84.0 mg/dL (65-100); OSMOLALITY SERUM 288.0 MOSM/KG (275-295)
[2025-03-30 09:08] VITALS: BP 149/63; O2SAT 97
[2025-03-30 09:10] LABS: ERYTHROCYTE SEDIMENTATION RATE 41 mm/hr (0-30)
[2025-03-30 18:14] VITALS: BP 149/63
[2025-03-31 02:13] VITALS: BP 149/71; O2SAT 96
[2025-03-31 08:58] VITALS: BP 150/64; O2SAT 98
[2025-03-31 21:11] VITALS: BP 148/59
[2025-04-01 03:51] VITALS: BP 136/60; O2SAT 96
[2025-04-01 08:00] VITALS: BP 151/69; O2SAT 96
[2025-04-01 09:51] LABS: BASO % 0.1 % (0.1-1.2); EOS # 0.12 (0.04-0.54); EOS % 1.6 % (0.7-7.0); LYMPH # 1.46 (1.18-3.74); LYMPH % 19.0 % (19.3-53.1); MEAN PLATELET VOLUME 9.50 fl (9.4-12.4); MONO # 1.04 (0.24-0.82); MONO % 13.5 % (4.7-12.5); NEUT # 5.00 (1.56-6.13); NEUT % 64.9 % (34.0-71.1); RED CELL DISTRIBUTION WIDTH 24.0 % (11.6-14.4)
[2025-04-01 09:53] LABS: BUN CREA RATIO 12.0 (7.0-25.0); CREATININE SERUM 0.69 mg/dL (0.55-1.02); GFR 81.25; GLUCOSE FASTING 90.0 mg/dL (65-100); OSMOLALITY SERUM 287.0 MOSM/KG (275-295)
[2025-04-01] MEDS ORDERED: POTASSIUM PHOS,M-BASIC-D-BASIC 15 MM in 0.9 % SODIUM CHLORIDE 250 ML IV NR (13:00)
[2025-04-01 19:04] VITALS: BP 146/62; O2SAT 98
[2025-04-02 02:32] VITALS: BP 151/56; O2SAT 96
[2025-04-02] MEDS ORDERED: MORPHINE SULFATE 2 MG/ML CARTRIDGE IV STA (11:17)
[2025-04-02] MEDS ORDERED: MORPHINE SULFATE 2 MG/ML CARTRIDGE IV PRN (11:30)
[2025-04-02 12:51] VITALS: BP 142/64; O2SAT 96
[2025-04-02 18:03] VITALS: BP 146/84
[2025-04-03 02:57] VITALS: BP 118/84; O2SAT 95
[2025-04-03 09:08] VITALS: BP 127/73; O2SAT 94
[2025-04-03 18:23] VITALS: BP 133/82
[2025-04-03 19:04] VITALS: BP 120/65
[2025-04-04 02:44] VITALS: BP 110/52; O2SAT 94
[2025-04-04 02:46] VITALS: BP 110/52; O2SAT 94
[2025-04-04 06:22] LABS: BASO % 0.1 % (0.1-1.2); EOS # 0.06 (0.04-0.54); EOS % 0.9 % (0.7-7.0); LYMPH # 1.41 (1.18-3.74); LYMPH % 20.7 % (19.3-53.1); MEAN PLATELET VOLUME 9.70 fl (9.4-12.4); MONO # 0.68 (0.24-0.82); MONO % 10.0 % (4.7-12.5); NEUT # 4.56 (1.56-6.13); NEUT % 67.1 % (34.0-71.1); RED CELL DISTRIBUTION WIDTH 21.7 % (11.6-14.4)
[2025-04-04 06:41] LABS: BUN CREA RATIO 13.0 (7.0-25.0); CREATININE SERUM 0.83 mg/dL (0.55-1.02); GFR 65.65; GLUCOSE FASTING 175.0 mg/dL (65-100); OSMOLALITY SERUM 285.0 MOSM/KG (275-295)
[2025-04-04 08:52] VITALS: BP 124/67; O2SAT 98
[2025-04-04] MEDS ORDERED: POTASSIUM PHOS,M-BASIC-D-BASIC 3 MM/ML VIAL IV NR ×2 (12:00→17:00)
[2025-04-04] MEDS ORDERED: MORPHINE SULFATE 2 MG/ML CARTRIDGE IV PRN (13:00)
[2025-04-04] MEDS ORDERED: ENOXAPARIN SODIUM 40 MG/0.4 ML SYRINGE SUBCUTANEO SCH (17:00)
[2025-04-04] MEDS ORDERED: LIDOCAINE 1 EACH ADH..PATCH TOP SCH (17:00)
[2025-04-04] MEDS ORDERED: AMINO ACIDS/PROTEIN HYDROLYS 30 ML BLIST.PACK PO SCH (17:00)
[2025-04-04 18:56] VITALS: BP 123/55; O2SAT 95
[2025-04-05 02:47] VITALS: BP 143/67; O2SAT 96
[2025-04-05 09:34] VITALS: BP 137/60; O2SAT 95
[2025-04-05 17:59] VITALS: BP 139/66; O2SAT 96
[2025-04-06 02:22] VITALS: BP 140/60; O2SAT 96
[2025-04-06 09:28] VITALS: BP 148/63; O2SAT 96
[2025-04-06 18:21] VITALS: BP 155/70; O2SAT 97
[2025-04-07 03:28] VITALS: BP 165/77; O2SAT 0
[2025-04-07 06:14] LABS: BASO % 0.7 % (0.1-1.2); EOS # 0.06 (0.04-0.54); EOS % 0.9 % (0.7-7.0); LYMPH # 2.06 (1.18-3.74); LYMPH % 29.4 % (19.3-53.1); MEAN PLATELET VOLUME 9.80 fl (9.4-12.4); MONO # 0.85 (0.24-0.82); NEUT # 3.60 (1.56-6.13); NEUT % 51.3 % (34.0-71.1); RED CELL DISTRIBUTION WIDTH 22.7 % (11.6-14.4)
[2025-04-07 06:37] LABS: MONO % 12.1 % (4.7-12.5)
[2025-04-07 06:44] LABS: BUN CREA RATIO 12.0 (7.0-25.0); CREATININE SERUM 0.65 mg/dL (0.55-1.02); GFR 87.05; GLUCOSE FASTING 81.0 mg/dL (65-100); OSMOLALITY SERUM 288.0 MOSM/KG (275-295)
[2025-04-07 07:29] LABS: EOSINOPHIL MAN 1.0 %; LYMPHOCYTE MAN 30.0 %; MONOCYTE MAN 10.0 %; NEUTROPHILS MAN 58.0 %
[2025-04-07] MEDS ORDERED: POTASSIUM PHOS,M-BASIC-D-BASIC 15 MM in 0.9 % SODIUM CHLORIDE 250 ML IV ONE (11:00)
[2025-04-07 11:27] VITALS: BP 145/77; O2SAT 95
[2025-04-07] MEDS ORDERED: ANIDULAFUNGIN 100 MG VIAL IV NR (13:00)
[2025-04-07] MEDS ORDERED: FLUCONAZOLE IN NACL,ISO-OSM 100 ML IV SCH (13:00)
[2025-04-07 16:23] VITALS: BP 151/66; O2SAT 97
[2025-04-07] MEDS ORDERED: LIDOCAINE 1 EACH ADH..PATCH TOP SCH (17:00)
[2025-04-07] MEDS ORDERED: CEFTAZIDIME/AVIBACTAM 1.25GM/100ML NSS PB IV SCH (17:00)
[2025-04-08 00:54] VITALS: BP 154/64; O2SAT 98
[2025-04-08] MEDS ORDERED: ANIDULAFUNGIN 100 MG VIAL IV SCH (09:00)
[2025-04-08 09:13] VITALS: BP 160/80; O2SAT 98
[2025-04-08] MEDS ORDERED: CELECOXIB 200 MG CAPSULE PO STA (11:17)
[2025-04-08 18:14] VITALS: BP 160/75; O2SAT 100
[2025-04-09 03:19] VITALS: BP 185/73; O2SAT 97
[2025-04-09] MEDS ORDERED: METHYLPREDNISOLONE SOD SUCC 40 MG VIAL IV NR (06:00)
[2025-04-09] MEDS ORDERED: DIATRIZOATE MEGLUMINE, SODIUM 30 ML BOTTLE PO NR (06:00)
[2025-04-09] MEDS ORDERED: AMINO ACIDS/PROTEIN HYDROLYS 30 ML BLIST.PACK PO SCH (09:00)
[2025-04-09 09:31] VITALS: BP 158/69; O2SAT 96
[2025-04-09] MEDS ORDERED: DIPHENHYDRAMINE HCL 50 MG/ML VIAL 1ML IV NR (11:15)
[2025-04-09 18:11] VITALS: BP 165/79
[2025-04-09 18:12] VITALS: BP 165/79
[2025-04-09] MEDS ORDERED: MORPHINE SULFATE 2 MG/ML CARTRIDGE IV PRN (19:00)
[2025-04-09] MEDS ORDERED: NIFEDIPINE 90 MG TAB.SA.OSM PO SCH (21:00)
[2025-04-10 03:14] VITALS: BP 163/53; O2SAT 99
[2025-04-10 06:17] LABS: BASO % 0.4 % (0.1-1.2); EOS # 0.04 (0.04-0.54); EOS % 0.5 % (0.7-7.0); LYMPH # 1.89 (1.18-3.74); LYMPH % 22.7 % (19.3-53.1); MEAN PLATELET VOLUME 9.40 fl (9.4-12.4); MONO # 0.73 (0.24-0.82); MONO % 8.8 % (4.7-12.5); NEUT # 5.51 (1.56-6.13); NEUT % 66.3 % (34.0-71.1); RED CELL DISTRIBUTION WIDTH 22.6 % (11.6-14.4)
[2025-04-10 06:47] LABS: BUN CREA RATIO 14.0 (7.0-25.0); CREATININE SERUM 0.7 mg/dL (0.55-1.02); GFR 79.91; GLUCOSE FASTING 92.0 mg/dL (65-100); OSMOLALITY SERUM 287.0 MOSM/KG (275-295)
[2025-04-10 09:39] VITALS: BP 133/73; O2SAT 97
[2025-04-10] MEDS ORDERED: POTASSIUM PHOS,M-BASIC-D-BASIC 3 MM/ML VIAL IV ONE (12:00)
[2025-04-10 22:01] VITALS: BP 145/66
[2025-04-11 03:08] VITALS: BP 160/73; O2SAT 95
[2025-04-11 10:17] VITALS: BP 107/81; O2SAT 98
[2025-04-11 21:34] VITALS: BP 145/72
[2025-04-12 01:05] VITALS: BP 159/70; O2SAT 96
[2025-04-12] MEDS ORDERED: LEVALBUTEROL HCL 0.63 MG/3 ML SOLUTION IH SCH (09:00)
[2025-04-12] MEDS ORDERED: ENOXAPARIN SODIUM 40 MG/0.4 ML SYRINGE SUBCUTANEO SCH (09:00)
[2025-04-12 17:49] VITALS: BP 196/75; O2SAT 96
[2025-04-13 02:31] VITALS: BP 152/75; O2SAT 97
[2025-04-13] MEDS ORDERED: MORPHINE SULFATE 2 MG/ML CARTRIDGE IV PRN (03:15)
[2025-04-13 10:07] VITALS: BP 142/74; O2SAT 96
[2025-04-13 18:26] VITALS: BP 137/67; O2SAT 95
[2025-04-14 01:10] VITALS: BP 119/66; O2SAT 96
[2025-04-14 06:24] LABS: BASO % 0.2 % (0.1-1.2); EOS # 0.06 (0.04-0.54); EOS % 0.6 % (0.7-7.0); LYMPH # 2.06 (1.18-3.74); LYMPH % 20.4 % (19.3-53.1); MEAN PLATELET VOLUME 9.60 fl (9.4-12.4); MONO # 1.32 (0.24-0.82); NEUT # 6.57 (1.56-6.13); NEUT % 64.9 % (34.0-71.1); RED CELL DISTRIBUTION WIDTH 19.6 % (11.6-14.4)
[2025-04-14 06:44] LABS: MONO % 13.1 % (4.7-12.5)
[2025-04-14 06:57] LABS: BUN CREA RATIO 14.0 (7.0-25.0); CREATININE SERUM 0.77 mg/dL (0.55-1.02); GFR 71.59; GLUCOSE FASTING 96.0 mg/dL (65-100); OSMOLALITY SERUM 279.0 MOSM/KG (275-295)
[2025-04-14 08:26] VITALS: BP 152/69; O2SAT 96
[2025-04-14] MEDS ORDERED: POTASSIUM PHOS,M-BASIC-D-BASIC 3 MM/ML VIAL IV ONE (13:30)
[2025-04-14 21:33] VITALS: BP 145/68
[2025-04-15 00:52] VITALS: BP 160/77; O2SAT 96
[2025-04-15] MEDS ORDERED: MORPHINE SULFATE 2 MG/ML CARTRIDGE IV PRN (05:30)
[2025-04-15] MEDS ORDERED: OxyCODONE HCL 5 MG TABLET (ROXICODONE) PO STA (10:12)
[2025-04-15] MEDS ORDERED: ANIDULAFUNGIN 100 MG VIAL IV NR (10:30)
[2025-04-15 10:38] VITALS: BP 157/74; O2SAT 96
[2025-04-15] MEDS ORDERED: CEFTAZIDIME/AVIBACTAM 1.25GM/100ML NSS PB IV SCH (13:00)
[2025-04-15 15:24] LABS: INR 1.01
[2025-04-15] MEDS ORDERED: LIDOCAINE HCL 1%/EPINEPHRINE 20ML VIAL IJ ONE (16:00)
[2025-04-15] MEDS ORDERED: IOVERSOL 320 MG/ML - 50 ML VIAL IV ONE (16:00)
[2025-04-15] MEDS ORDERED: BUPIVACAINE HCL/MPF 0.5% 30ML VIAL ONE (16:00)
[2025-04-15] MEDS ORDERED: AMPICILLIN SODIUM/SULBACTAM NA 3,000 MG in 0.9 % SODIUM CHLORIDE 100 ML IV SCH (17:00)
[2025-04-15 23:00] VITALS: BP 159/74
[2025-04-16 01:49] VITALS: BP 153/74; O2SAT 96
[2025-04-16] MEDS ORDERED: ANIDULAFUNGIN 100 MG VIAL IV SCH (09:00)
[2025-04-16 09:09] VITALS: BP 164/65; O2SAT 97
[2025-04-16] MEDS ORDERED: PROCARDIA XL90 MG PO (12:52)
[2025-04-16] MEDS ORDERED: PROTEINEX-18 LI30 ML PO (12:52)
[2025-04-16] MEDS ORDERED: ABANEU-SL TABL1 EACH SL (12:52)
[2025-04-16] MEDS ORDERED: FUSION PLUS CA1 EACH PO (12:52)
[2025-04-16] MEDS ORDERED: NEURONTIN300 MG PO (12:52)
[2025-04-16] MEDS ORDERED: INTESTINEX680 M1 PO (12:52)
[2025-04-16] MEDS ORDERED: PREDNISONE10 M2 PO (12:52)
[2025-04-16] MEDS ORDERED: SYNTHROID50 MCG PO (12:52)
[2025-04-16] MEDS ORDERED: PANTOPRAZOLE SO40 MG PO (12:52)
[2025-04-16] MEDS ORDERED: XARELTO2.5 MG PO (12:52)
[2025-04-16] MEDS ORDERED: THIAMINE HCL100 MG PO (12:52)
[2025-04-16] MEDS ORDERED: FAMOTIDINE20 MG PO (12:52)
[2025-04-16] MEDS ORDERED: CARVEDILOL6.25 MG PO (12:52)
[2025-04-16] MEDS ORDERED: OXYCODONE HCL5 MG PO (12:55)
== END 2025-04-16 22:53 | disposition home or self-care (01) | DRG 371 ==
LOC: ER 09:42 → MEDI 15:20 → MEDJ 15:20
PROVIDERS: Internal Medicine; Physician Assistant Medical; ADMIT Internal Medicine Geriatric Medicine; ATTEND Internal Medicine Geriatric Medicine
PROC: BW21YZZ Computerized Tomography (CT Scan) of Abdomen and Pelvis using Other Contrast (ICD-10-PCS; 2025-03-11)
PROC: 02HV33Z Insertion of Infusion Device into Superior Vena Cava, Percutaneous Approach (ICD-10-PCS; 2025-03-12)
PROC: BW21YZZ Computerized Tomography (CT Scan) of Abdomen and Pelvis using Other Contrast (ICD-10-PCS; 2025-03-17)
PROC: 8E0ZXY6 Isolation (ICD-10-PCS; principal; 2025-03-19)
PROC: BQ2SYZZ Computerized Tomography (CT Scan) of Left Lower Extremity using Other Contrast (ICD-10-PCS; 2025-03-22)
PROC: B54CZZZ Ultrasonography of Left Lower Extremity Veins (ICD-10-PCS; 2025-03-22)
PROC: BW21YZZ Computerized Tomography (CT Scan) of Abdomen and Pelvis using Other Contrast (ICD-10-PCS; 2025-04-09)
PROC: 0W9J30Z Drainage of Pelvic Cavity with Drainage Device, Percutaneous Approach (ICD-10-PCS; 2025-04-10)
PROC: 0W2FX0Z Change Drainage Device in Abdominal Wall, External Approach (ICD-10-PCS; 2025-04-15)
DX: K65.1 Peritoneal abscess (principal); A41.9 Sepsis, unspecified organism; E27.40 Unspecified adrenocortical insufficiency; D84.9 Immunodeficiency, unspecified; K63.2 Fistula of intestine; K57.92 Diverticulitis of intestine, part unspecified, without perforation or abscess without bleeding; K43.0 Incisional hernia with obstruction, without gangrene; D64.9 Anemia, unspecified; J44.9 Chronic obstructive pulmonary disease, unspecified; E03.9 Hypothyroidism, unspecified; E11.9 Type 2 diabetes mellitus without complications; Z79.4 Long term (current) use of insulin; I10 Essential (primary) hypertension; Z79.52 Long term (current) use of systemic steroids